=== PATIENT | male | born 1955 | race Caucasian/White ===

== ENCOUNTER 2016-05-22 11:44 | Emergency (ER) | payer OTHER ==
[~2016-05-22 11:44] MED LIST: ACET65TA; COUM1TAB; FOLI1TAB; KEFL500C; No Historical Meds; PERC5TAB8; PERC7.5T8; PRIL20CA; THERGRAN; THIA100T
[2016-05-22] MEDS ORDERED: ACETAMINOPHEN 325 MG TAB As Ordered ONE (13:07)
--- NOTE | 2016-05-22 13:23 | REP ---
Clinical: Posterior headaches . Comparison: None . Findings: The ventricles, sulci, and cisterns are normal in position and appearance. Bhardwaj-white differentiation is maintained. No acute intracranial hemorrhage, mass/mass effect, pathology or trauma/injury. No evidence for acute infarction. No extra-axial fluid collection. Calvarium is intact. Paranasal sinuses and mastoid air cells are clear. Impression: Normal noncontrast head CT. No evidence for acute intracranial pathology or trauma/injury. Signed by Jonathan Mazariegos MD 05/22/2016 01:14 P
--- NOTE | 2016-05-22 13:39 | REP ---
CT CERVICAL SPINE WITHOUT CONTRAST: 05/22/2016. Clinical history: Posterior headaches. There are no prior pertinent studies. The patient also had a head CT this date. Technique: axial soft-tissue and bone windows with sagittal and coronal bone window reconstructions provided. Trauma protocol utilized. Findings: Mastoids and occipital bone were grossly intact. The ring of C1 is preserved. There are degenerative changes at the articulation between the anterior arch of C1 and the dens. The dens and lateral masses of C1 have symmetric relationship on the coronal reconstructions and axial projections. There is loss of the normal cervical lordosis. There are anterior osteophytes at C5-6 and C6-7 with smaller posterior osteophytes. There is also bridging osteophyte at C4-5 which has discontinuity or fragmentation. There is no disc space narrowing at C4-5 and the levels above. No compression deformity or destructive lesion. Disc bulge and osteophytes at C5-6 and C6-7 cause central canal stenosis. Foramina only marginally adequate at C6-7, mildly stenotic at C5-6. C4-5 foramina and central canal adequate. The other levels intact. Posterior elements including the spinous processes, lamina, pedicles, facets, transverse processes and the transverse foramina were without fracture. There is facet arthropathy at multiple levels. Impression: 1. Cervical spondylosis at C5-6 and C6-7, less at C4-5 with no compression deformity or malalignment. 2. Some central canal and marginal foraminal stenosis is seen at C5-C6 and C6-7. No other levels with any significant spinal or foraminal stenosis. 3. No dens fracture or focal lesion and its relationship to C1 normal. Signed by Spike Bar MD 05/22/2016 01:56 P
[2016-05-22] MEDS ORDERED: KETOROLAC 30 MG/ML VIAL (J1885) As Ordered ONE (13:42)
--- NOTE | 2016-05-22 13:46 | REP ---
Clinical: Productive cough . Comparison: 09/16/2014 . Technique: PA and lateral. Findings: The mediastinum and cardiac silhouette are normal. The lung byrnes are clear and without acute consolidation, effusion, or pneumothorax. The skeletal structures are intact and normal. Impression: 1. No acute cardiopulmonary process. Signed by Jonathan Mazariegos MD 05/22/2016 01:38 P
--- NOTE | 2016-05-22 14:26 | EDDOCDS ---
Physician Documentation [facility] Name: Gordy Valle Age: 61 yrs Sex: Male : 1955 Arrival Date: 05/22/2016 Time: 11:44 Bed PD Private MD: Disposition: 05/22/16 14:10 Discharged to Home/Self Care. Impression: Spinal stenosis, cervical region, Headache. - Condition is Stable. - Discharge Instructions: General Headache Without Cause, Herniated Disk. - Prescriptions for [place] 5- 325 mg Oral Tablet - take 1 tablet by ORAL route every 6 hours As needed MDD: 4 tabs; MAY CAUSE DROWSINESS. 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 - Medication Reconciliation, Local Pharmacy Hours form. - Follow up: Emergency Department; When: As needed; Reason: Worsening of conditions. [facility]; When: Call to arrange an appointment; Reason: Recheck today's complaints, Continuance of care, To establish care. Follow up: Orthopaedics, [facility]; When: Call to arrange an appointment; Reason: Wound/Symptom Recheck, Further diagnostic work-up, Recheck today's complaints, Continuance of care, To establish care. Follow up: [facility]; When: Call to arrange an appointment; Reason: Wound/Symptom Recheck, Further diagnostic work-up, Recheck today's complaints, Continuance of care, To establish care. - Problem is new. - Symptoms are unchanged. - Notes: YOU HAVE SPINAL STENOSIS OF THE CERVICAL REGION, WHICH IS MOST LIKELY THE CAUSE OF YOUR HEADACHES. PLEASE TAKE THE PAIN MEDICATION DIRECTED, NEEDED FOR YOUR PAIN. YOU HAVE BEEN GIVEN INFORMATION TO FOLLOW UP WITH ORTHOPEDICS AND NEUROSURGERY. PLEASE CALL THESE OFFICES TO SCHEDULE FOLLOW UP FOR YOUR SYMPTOMS. YOUR CHEST XRAY DID NOT SHOW ANY ABNORMALITIES TODAY. Historical: - Allergies: no known allergies; - Home Meds: 1. Prozac Oral has is supposed to take and doesn't - PMHx: Depression; - PSHx: Hip Arthroplasty, Right; - Social history: Smoking status: Patient states former smoker of tobacco. No barriers to communication noted, The patient speaks fluent Tajik. - Family history: No immediate family members are acutely ill. - : The pt / caregiver states he / she is not on anticoagulants. Home medication list is obtained from the patient. - Exposure Risk Screening:: None identified. Vital Signs: 05/22 11:49 BP 157 / 84 RA Sitting (auto/reg); Pulse 73; Resp 18; Temp 98.4(O); Pulse Ox 98% on jrd R/A; Weight 109.77 kg / 242 lbs; Height 5 ft. 10 in. (177.80 cm); Pain 10/10; 14:25 BP 155 / 95; Pulse 82; Resp 16; Temp 98.7(O); Pulse Ox 97% on R/A; Pain 5/10; mlb1 11:49 Body Mass Index 34.72 (109.77 kg, 177.80 cm) jrd MDM: 12:51 Acetaminophen Tablet 975 mg PO once ordered. dt4 12:52 CT Head Without Contrast Ordered. EDMS 12:52 CT Spine,Cervical W/o Contrast Ordered. EDMS 12:52 Chest, 2 View (pa\E\lat) Ordered. EDMS 12:56 Financial registration complete. mm15 12:59 [facility] Payment Agreement was scanned into [employer] and attached to record. mm15 13:32 ketorolac 60 mg IM once ordered. dt4 Administered Medications: 13:10 Drug: Acetaminophen 975 mg [acetaminophen 325 mg tablet (3 tabs)] Route: PO; mb9 13:46 Drug: ketorolac 60 mg [ketorolac 30 mg/mL (1 mL) injection solution (2 mL)] Route: IM; mb9 Site: left gluteus; Signatures: Dispatcher [employer] EDMS Marvel Hackett RN RN mlb1 Rossana Alonzo mm15 Alexandra Madrigal, PA-C PA-C dt4 Jazmin Cadet RN RN ms18 Marvel Lao,RN RN mb9 The chart was reviewed and I authenticate all verbal orders and agree with the evaluation and treatment provided.Attachments: 12:59 [facility] Payment Agreement mm15 MTDD
--- NOTE | 2016-05-22 14:26 | EDDOCDS ---
Nurse's Notes [facility] Name: Gordy Valle Age: 61 yrs Sex: Male : 1955 Arrival Date: 05/22/2016 Time: 11:44 Bed PD Private MD: Diagnosis: Spinal stenosis, cervical region;Headache Presentation: 05/22 11:52 Presenting complaint: Patient states: that he hasn't been feeling well for the past 2 ms18 weeks, flu like symptoms. Pt reports that he has a headache that has been present for approx 5 months and believes it has gotten worse in the past 2 weeks. This patient has no additional risk factors. Adult Sepsis Screening: Patient has new or worsening altered mentation (1 point). Patient's respiratory rate is less than 22. Systolic blood pressure is greater than 100. Patient has a qSOFA score of 0- Negative Sepsis Screen. Suicide/Homicide risk assessment- the patient denies having any suicidal and/or homicidal ideations and does not present with any other emotional, behavioral or mental health complaints. Status: Patient is not a director of home health services or dependent. Transition of care: patient was not received from another setting of care. 11:52 Acuity: MARGOT Level 3 ms18 11:52 Method Of Arrival: Walkin/Carried/Asstd ms18 Triage Assessment: 11:56 Headache History: This patient does not have a history of previous headaches. General: ms18 Appears in no apparent distress, Behavior is anxious, cooperative, crying. Pain: Location: occipital area and base of the skull Pain currently is 9 out of 10 on a pain scale. Pain began 5 months ago. HIV screening NA for this visit Offered previously. Neurological: Level of Consciousness is awake, alert, obeys commands, Oriented to person, place, time, Moves all extremities. Gait is steady, Speech is normal, Facial symmetry appears normal. Respiratory: Airway is patent Respiratory effort is even, unlabored. Derm: Skin is pink, warm & dry. normal. Historical: - Allergies: no known allergies; - Home Meds: 1. Prozac Oral has is supposed to take and doesn't - PMHx: Depression; - PSHx: Hip Arthroplasty, Right; - Social history: Smoking status: Patient states former smoker of tobacco. No barriers to communication noted, The patient speaks fluent Grenadian. - Family history: No immediate family members are acutely ill. - : The pt / caregiver states he / she is not on anticoagulants. Home medication list is obtained from the patient. - Exposure Risk Screening:: None identified. Screenin:29 Screening information is obtained from the patient. Fall risk: No risks identified. mb9 Assistance ADL's: requires no assistance with activities of daily living. Abuse/DV Screen: The patient / caregiver reports he/she is: not in a situation that causes fear, pain or injury. Nutritional screening: No deficits noted. Advance Directives: There is no active DNR order. home support is adequate. Assessment: 13:10 General: Appears uncomfortable. Pain: Location: base of the skull and occipital area mb9 Pain currently is 5 out of 10 on a pain scale. Neurological: Level of Consciousness is awake, alert, Oriented to person, place, time, Processing Mgr are weak bilaterally Gait is steady, Speech is normal, Facial symmetry appears normal, Reports dizziness. Respiratory: Airway is patent Respiratory effort is even, unlabored. 14:24 General: Appears in no apparent distress, Behavior is appropriate for age, cooperative. mlb1 Pain: Location: base of the skull and occipital area Pain currently is 5 out of 10 on a pain scale. Neurological: No deficits noted. Respiratory: No deficits noted. Vital Signs: 11:49 BP 157 / 84 RA Sitting (auto/reg); Pulse 73; Resp 18; Temp 98.4(O); Pulse Ox 98% on jrd R/A; Weight 109.77 kg; Height 5 ft. 10 in. (177.80 cm); Pain 10/10; 14:25 BP 155 / 95; Pulse 82; Resp 16; Temp 98.7(O); Pulse Ox 97% on R/A; Pain 5/10; mlb1 11:49 Body Mass Index 34.72 (109.77 kg, 177.80 cm) [facility] Vitals: 11:56 Log In Time: May 22, 2016 at 11:44. ms18 ED Course: 11:45 Patient visited by Dylan Hutchinson PCA. jrd 11:45 Patient moved to Waiting jrd 11:51 Patient visited by Dylan Hutchinson PCA. jrd 11:51 Patient moved to Pre RCE jrd 11:54 Triage Initiated ms18 12:17 Patient moved to Triage 2 mlb1 12:32 [facility]al [facility] dt4 12:32 David Santizo MD is Attending Physician. dt4 12:33 Patient visited by Alexandra Madrigal PA-C. dt4 12:48 Patient moved to PD mb9 12:59 [facility] Payment Agreement was scanned into [employer] and attached to record. mm15 13:29 The patient / caregiver is instructed regarding the plan of care and ED course. mb9 13:34 CT Head Without Contrast Returned. EDMS 13:44 Patient visited by Alexandra Madrigal PA-C. dt4 14:08 [facility] is Referral Physician. [facility]4 14[facility]. dt4 14:09 [facility] is Referral Physician. dt4 14:18 CT Spine,Cervical W/o Contrast Returned. EDMS 14:18 Chest, 2 View (pa\E\lat) Returned. EDMS 14:25 No IV's were initiated during this patient's visit. No procedures done that require mlb1 assistance. 14:26 Patient visited by Marvel Hackett RN. mlb1 Administered Medications: 13:10 Drug: Acetaminophen 975 mg [acetaminophen 325 mg tablet (3 tabs)] Route: PO; mb9 13:46 Drug: ketorolac 60 mg [ketorolac 30 mg/mL (1 mL) injection solution (2 mL)] Route: IM; mb9 Site: left gluteus; Order Results: Radiology Order: CT Head Without Contrast Test: CT Head Without Contrast REASON FOR EXAMINATION: POSTERIOR VELEZ X'S 5 MONTHS; Clinical: Posterior headaches .; ; Comparison: None .; ; Findings:; The ventricles, sulci, and cisterns are normal in position and appearance.; Bhardwaj-white differentiation is maintained. No acute intracranial hemorrhage,; mass/mass effect, pathology or trauma/injury. No evidence for acute infarction.; No extra-axial fluid collection. Calvarium is intact. Paranasal sinuses and; mastoid air cells are clear.; ; Impression:; Normal noncontrast head CT.; No evidence for acute intracranial pathology or trauma/injury.; ; ; Signed by; Jonathan Mazariegos MD 05/22/2016 01:14 P; Radiology Order: CT Spine,Cervical W/o Contrast Test: CT Spine,Cervical W/o Contrast REASON FOR EXAMINATION: POSTERIOR VELEZ; CT CERVICAL SPINE WITHOUT CONTRAST: 05/22/2016.; ; Clinical history: Posterior headaches.; ; There are no prior pertinent studies. The patient also had a head CT this date.; ; Technique: axial soft-tissue and bone windows with sagittal and coronal bone; window reconstructions provided. Trauma protocol utilized.; ; Findings: Mastoids and occipital bone were grossly intact. The ring of C1 is; preserved. There are degenerative changes at the articulation between the; anterior arch of C1 and the dens. The dens and lateral masses of C1 have; symmetric relationship on the coronal reconstructions and axial projections.; There is loss of the normal cervical lordosis. There are anterior osteophytes at; C5-6 and C6-7 with smaller posterior osteophytes. There is also bridging; osteophyte at C4-5 which has discontinuity or fragmentation. There is no disc; space narrowing at C4-5 and the levels above. No compression deformity or; destructive lesion. Disc bulge and osteophytes at C5-6 and C6-7 cause central; canal stenosis. Foramina only marginally adequate at C6-7, mildly stenotic at; C5-6. C4-5 foramina and central canal adequate. The other levels intact.; Posterior elements including the spinous processes, lamina, pedicles, facets,; transverse processes and the transverse foramina were without fracture. There is; facet arthropathy at multiple levels.; ; Impression:; ; 1. Cervical spondylosis at C5-6 and C6-7, less at C4-5 with no compression; deformity or malalignment.; ; 2. Some central canal and marginal foraminal stenosis is seen at C5-C6 and C6-7.; No other levels with any significant spinal or foraminal stenosis.; ; 3. No dens fracture or focal lesion and its relationship to C1 normal.; ; ; ; ; Signed by; Spike Bar MD 05/22/2016 01:56 P; Radiology Order: Chest, 2 View (pa\E\lat) Test: Chest, 2 View (pa\E\lat) REASON FOR EXAMINATION: PRODUCTIVE COUGH; Clinical: Productive cough .; ; Comparison: 09/16/2014 .; ; Technique: PA and lateral.; ; Findings:; The mediastinum and cardiac silhouette are normal. The lung ybrnes are clear and; without acute consolidation, effusion, or pneumothorax. The skeletal structures; are intact and normal.; ; Impression:; 1. No acute cardiopulmonary process.; ; ; Signed by; Jonathan Mazariegos MD 05/22/2016 01:38 P; Outcome: 14:10 Discharge ordered by Provider. dt4 14:25 Discharge Assessment: Patient awake, alert and oriented x 3. No cognitive and/or mlb1 functional deficits noted. Patient verbalized understanding of disposition instructions. patient administered narcotics - no. The following High Risk Discharge criteria are identified: None. Discharged to home ambulatory. Condition: good. Discharge instructions given to patient, Instructed on discharge instructions, follow up and referral plans. medication usage, no driving heavy equipment, Demonstrated understanding of instructions, medications, Pt was receptive of discharge instructions/ teaching. Prescriptions given X 1. CT Study completed. Property sent home with patient. 14:26 Patient left the ED. mlb1 Signatures: Dispatcher [employer] EDMS Marvel Hackett RN RN mlb1 Rossana Alonzo mm15 Alexandra Madrigal, PA-C PA-C dt4 Jazmin Cadet,JONNA RN ms18 Dylan Hutchinson, THREAD GRINDER TOOL THREAD GRINDER TOOL Marvel Norris,RN RN mb9 [facility]
--- NOTE | 2016-05-24 15:28 | EDDOCDS ---
Physician Documentation [facility] Name: Gordy Valle Age: 61 yrs Sex: Male : 1955 Arrival Date: 05/22/2016 Time: 11:44 Bed PD Private MD: Disposition: 05/22/16 14:10 Discharged to Home/Self Care. Impression: Spinal stenosis, cervical region, Headache. - Condition is Stable. - Discharge Instructions: General Headache Without Cause, Herniated Disk. - Prescriptions for [place] 5- 325 mg Oral Tablet - take 1 tablet by ORAL route every 6 hours As needed MDD: 4 tabs; MAY CAUSE DROWSINESS. 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 - Medication Reconciliation, Local Pharmacy Hours form. - Follow up: Emergency Department; When: As needed; Reason: Worsening of conditions. Follow up: [facility]; When: Call to arrange an appointment; Reason: Recheck today's complaints, Continuance of care, To establish care. Follow up: Orthopaedics, [facility]; When: Call to arrange an appointment; Reason: Wound/Symptom Recheck, Further diagnostic work-up, Recheck today's complaints, Continuance of care, To establish care. Follow up: [facility]; When: Call to arrange an appointment; Reason: Wound/Symptom Recheck, Further diagnostic work-up, Recheck today's complaints, Continuance of care, To establish care. - Problem is new. - Symptoms are unchanged. - Notes: YOU HAVE SPINAL STENOSIS OF THE CERVICAL REGION, WHICH IS MOST LIKELY THE CAUSE OF YOUR HEADACHES. PLEASE TAKE THE PAIN MEDICATION DIRECTED, NEEDED FOR YOUR PAIN. YOU HAVE BEEN GIVEN INFORMATION TO FOLLOW UP WITH ORTHOPEDICS AND NEUROSURGERY. PLEASE CALL THESE OFFICES TO SCHEDULE FOLLOW UP FOR YOUR SYMPTOMS. YOUR CHEST XRAY DID NOT SHOW ANY ABNORMALITIES TODAY. Historical: - Allergies: no known allergies; - Home Meds: 1. Prozac Oral has is supposed to take and doesn't - PMHx: Depression; - PSHx: Hip Arthroplasty, Right; - Social history: Smoking status: Patient states former smoker of tobacco. No barriers to communication noted, The patient speaks fluent Maori. - Family history: No immediate family members are acutely ill. - : The pt / caregiver states he / she is not on anticoagulants. Home medication list is obtained from the patient. - Exposure Risk Screening:: None identified. Vital Signs: 05/22 11:49 BP 157 / 84 RA Sitting (auto/reg); Pulse 73; Resp 18; Temp 98.4(O); Pulse Ox 98% on jrd R/A; Weight 109.77 kg / 242 lbs; Height 5 ft. 10 in. (177.80 cm); Pain 10/10; 14:25 BP 155 / 95; Pulse 82; Resp 16; Temp 98.7(O); Pulse Ox 97% on R/A; Pain 5/10; mlb1 11:49 Body Mass Index 34.72 (109.77 kg, 177.80 cm) jrd MDM: 12:51 Acetaminophen Tablet 975 mg PO once ordered. dt4 12:52 CT Head Without Contrast Ordered. EDMS 12:52 CT Spine,Cervical W/o Contrast Ordered. EDMS 12:52 Chest, 2 View (pa\E\lat) Ordered. EDMS 12:56 Financial registration complete. mm15 12:59 [facility] Payment Agreement was scanned into [employer] and attached to record. mm15 13:32 ketorolac 60 mg IM once ordered. dt4 15:46 T-Sheet-- Draft Copy was scanned into [employer] and attached to record. gb 15:46 Radiology Report was scanned into [employer] and attached to record. gb Administered Medications: 13:10 Drug: Acetaminophen 975 mg [acetaminophen 325 mg tablet (3 tabs)] Route: PO; mb9 13:46 Drug: ketorolac 60 mg [ketorolac 30 mg/mL (1 mL) injection solution (2 mL)] Route: IM; mb9 Site: left gluteus; Signatures: Dispatcher [employer] EDMS Renee Valdivia, Reg Reg gb Marvel Hackett, RN RN mlb1 Rossana Alonzo mm15 Alexandra Madrigal PA-C PALuis A dt4 Jazmin Cadet RN RN ms18 Marvel LaoRN RN mb9 The chart was reviewed and I authenticate all verbal orders and agree with the evaluation and treatment provided.Attachments: 12:59 [facility] Payment Agreement mm15 15:46 T-Sheet-- Draft Copy gb Chart Complete MTDD
--- NOTE | 2016-05-24 15:28 | EDDOCDS ---
Nurse's Notes [facility] Name: Gordy Valle Age: 61 yrs Sex: Male : 1955 Arrival Date: 05/22/2016 Time: 11:44 Bed PD Private MD: Diagnosis: Spinal stenosis, cervical region;Headache Presentation: 05/22 11:52 Presenting complaint: Patient states: that he hasn't been feeling well for the past 2 ms18 weeks, flu like symptoms. Pt reports that he has a headache that has been present for approx 5 months and believes it has gotten worse in the past 2 weeks. This patient has no additional risk factors. Adult Sepsis Screening: Patient has new or worsening altered mentation (1 point). Patient's respiratory rate is less than 22. Systolic blood pressure is greater than 100. Patient has a qSOFA score of 0- Negative Sepsis Screen. Suicide/Homicide risk assessment- the patient denies having any suicidal and/or homicidal ideations and does not present with any other emotional, behavioral or mental health complaints. 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 Transition of care: patient was not received from another setting of care. 11:52 Acuity: MARGOT Level 3 ms18 11:52 Method Of Arrival: Walkin/Carried/Asstd ms18 Triage Assessment: 11:56 Headache History: This patient does not have a history of previous headaches. General: ms18 Appears in no apparent distress, Behavior is anxious, cooperative, crying. Pain: Location: occipital area and base of the skull Pain currently is 9 out of 10 on a pain scale. Pain began 5 months ago. HIV screening NA for this visit Offered previously. Neurological: Level of Consciousness is awake, alert, obeys commands, Oriented to person, place, time, Moves all extremities. Gait is steady, Speech is normal, Facial symmetry appears normal. Respiratory: Airway is patent Respiratory effort is even, unlabored. Derm: Skin is pink, warm & dry. normal. Historical: - Allergies: no known allergies; - Home Meds: 1. Prozac Oral has is supposed to take and doesn't - PMHx: Depression; - PSHx: Hip Arthroplasty, Right; - Social history: Smoking status: Patient states former smoker of tobacco. No barriers to communication noted, The patient speaks fluent Zambian. - Family history: No immediate family members are acutely ill. - : The pt / caregiver states he / she is not on anticoagulants. Home medication list is obtained from the patient. - Exposure Risk Screening:: None identified. Screenin:29 Screening information is obtained from the patient. Fall risk: No risks identified. mb9 Assistance ADL's: requires no assistance with activities of daily living. Abuse/DV Screen: The patient / caregiver reports he/she is: not in a situation that causes fear, pain or injury. Nutritional screening: No deficits noted. Advance Directives: There is no active DNR order. home support is adequate. Assessment: 13:10 General: Appears uncomfortable. Pain: Location: base of the skull and occipital area mb9 Pain currently is 5 out of 10 on a pain scale. Neurological: Level of Consciousness is awake, alert, Oriented to person, place, time, Commercial Litigation Attorney are weak bilaterally Gait is steady, Speech is normal, Facial symmetry appears normal, Reports dizziness. Respiratory: Airway is patent Respiratory effort is even, unlabored. 14:24 General: Appears in no apparent distress, Behavior is appropriate for age, cooperative. mlb1 Pain: Location: base of the skull and occipital area Pain currently is 5 out of 10 on a pain scale. Neurological: No deficits noted. Respiratory: No deficits noted. Vital Signs: 11:49 BP 157 / 84 RA Sitting (auto/reg); Pulse 73; Resp 18; Temp 98.4(O); Pulse Ox 98% on jrd R/A; Weight 109.77 kg; Height 5 ft. 10 in. (177.80 cm); Pain 10/10; 14:25 BP 155 / 95; Pulse 82; Resp 16; Temp 98.7(O); Pulse Ox 97% on R/A; Pain 5/10; mlb1 11:49 Body Mass Index 34.72 (109.77 kg, 177.80 cm) [facility] Vitals: 11:56 Log In Time: May 22, 2016 at 11:44. ms18 ED Course: 11:45 Patient visited by Dylan Hutchinson PCA. jrd 11:45 Patient moved to Waiting jrd 11:51 Patient visited by Dylan Hutchinson PCA. jrd 11:51 Patient moved to Pre RCE jrd 11:54 Triage Initiated ms18 12:17 Patient moved to Triage 2 mlb1 12:32 [facility] dt4 12:32 David Santizo MD is Attending Physician. dt4 12:33 Patient visited by Alexandra Madrigal PA-C. dt4 12:48 Patient moved to PD mb9 12:59 [facility] Payment Agreement was scanned into [employer] and attached to record. mm15 13:29 The patient / caregiver is instructed regarding the plan of care and ED course. mb9 13:34 CT Head Without Contrast Returned. EDMS 13:44 Patient visited by Alexandra Madrigal PA-C. dt4 14:08 [facility], Education [facility] is Referral Physician. dt4 14:09 [facility]. dt4 14:09 Jessica Lebron is Referral Physician. dt4 14:18 CT Spine,Cervical W/o Contrast Returned. EDMS 14:18 Chest, 2 View (pa\E\lat) Returned. EDMS 14:25 No IV's were initiated during this patient's visit. No procedures done that require mlb1 assistance. 14:26 Patient visited by Marvel Hackett RN. mlb1 15:46 T-Sheet-- Draft Copy was scanned into [employer] and attached to record. gb 15:46 Radiology Report was scanned into [employer] and attached to record. gb Administered Medications: 13:10 Drug: Acetaminophen 975 mg [acetaminophen 325 mg tablet (3 tabs)] Route: PO; mb9 13:46 Drug: ketorolac 60 mg [ketorolac 30 mg/mL (1 mL) injection solution (2 mL)] Route: IM; mb9 Site: left gluteus; Order Results: Radiology Order: CT Head Without Contrast Test: CT Head Without Contrast REASON FOR EXAMINATION: POSTERIOR VELEZ X'S 5 MONTHS; Clinical: Posterior headaches .; ; Comparison: None .; ; Findings:; The ventricles, sulci, and cisterns are normal in position and appearance.; Bhardwaj-white differentiation is maintained. No acute intracranial hemorrhage,; mass/mass effect, pathology or trauma/injury. No evidence for acute infarction.; No extra-axial fluid collection. Calvarium is intact. Paranasal sinuses and; mastoid air cells are clear.; ; Impression:; Normal noncontrast head CT.; No evidence for acute intracranial pathology or trauma/injury.; ; ; Signed by; Jonathan Mazariegos MD 05/22/2016 01:14 P; Radiology Order: CT Spine,Cervical W/o Contrast Test: CT Spine,Cervical W/o Contrast REASON FOR EXAMINATION: POSTERIOR VELEZ; CT CERVICAL SPINE WITHOUT CONTRAST: 05/22/2016.; ; Clinical history: Posterior headaches.; ; There are no prior pertinent studies. The patient also had a head CT this date.; ; Technique: axial soft-tissue and bone windows with sagittal and coronal bone; window reconstructions provided. Trauma protocol utilized.; ; Findings: Mastoids and occipital bone were grossly intact. The ring of C1 is; preserved. There are degenerative changes at the articulation between the; anterior arch of C1 and the dens. The dens and lateral masses of C1 have; symmetric relationship on the coronal reconstructions and axial projections.; There is loss of the normal cervical lordosis. There are anterior osteophytes at; C5-6 and C6-7 with smaller posterior osteophytes. There is also bridging; osteophyte at C4-5 which has discontinuity or fragmentation. There is no disc; space narrowing at C4-5 and the levels above. No compression deformity or; destructive lesion. Disc bulge and osteophytes at C5-6 and C6-7 cause central; canal stenosis. Foramina only marginally adequate at C6-7, mildly stenotic at; C5-6. C4-5 foramina and central canal adequate. The other levels intact.; Posterior elements including the spinous processes, lamina, pedicles, facets,; transverse processes and the transverse foramina were without fracture. There is; facet arthropathy at multiple levels.; ; Impression:; ; 1. Cervical spondylosis at C5-6 and C6-7, less at C4-5 with no compression; deformity or malalignment.; ; 2. Some central canal and marginal foraminal stenosis is seen at C5-C6 and C6-7.; No other levels with any significant spinal or foraminal stenosis.; ; 3. No dens fracture or focal lesion and its relationship to C1 normal.; ; ; ; ; Signed by; Spike Bar MD 05/22/2016 01:56 P; Radiology Order: Chest, 2 View (pa\E\lat) Test: Chest, 2 View (pa\E\lat) REASON FOR EXAMINATION: PRODUCTIVE COUGH; Clinical: Productive cough .; ; Comparison: 09/16/2014 .; ; Technique: PA and lateral.; ; Findings:; The mediastinum and cardiac silhouette are normal. The lung byrnes are clear and; without acute consolidation, effusion, or pneumothorax. The skeletal structures; are intact and normal.; ; Impression:; 1. No acute cardiopulmonary process.; ; ; Signed by; Jonathan Mazariegos MD 05/22/2016 01:38 P; Outcome: 14:10 Discharge ordered by Provider. dt4 14:25 Discharge Assessment: Patient awake, alert and oriented x 3. No cognitive and/or mlb1 functional deficits noted. Patient verbalized understanding of disposition instructions. patient administered narcotics - no. The following High Risk Discharge criteria are identified: None. Discharged to home ambulatory. Condition: good. Discharge instructions given to patient, Instructed on discharge instructions, follow up and referral plans. medication usage, no driving heavy equipment, Demonstrated understanding of instructions, medications, Pt was receptive of discharge instructions/ teaching. Prescriptions given X 1. CT Study completed. Property sent home with patient. 14:26 Patient left the ED. mlb1 Signatures: Dispatcher [employer] EDMS Renee Valdivia, Reg Reg gb Marvel Hackett RN RN mlb1 Rossana Alonzo mm15 Alexandra Madrigal, PA-C PA-C dt4 Jazmin Cadet,RN RN ms18 Dylan Hutchinson, B[employer] SALES MERCHANDISER Marvel Norris,RN RN mb9 Chart Complete MTDD
--- NOTE | 2016-05-24 15:28 | EDDOCDS ---
Physician Documentation [facility] Name: Gordy Valle Age: 61 yrs Sex: Male : 1955 Arrival Date: 05/22/2016 Time: 11:44 Bed PD Private MD: Disposition: 05/22/16 14:10 Discharged to Home/Self Care. Impression: Spinal stenosis, cervical region, Headache. - Condition is Stable. - Discharge Instructions: General Headache Without Cause, Herniated Disk. - Prescriptions for [place] 5- 325 mg Oral Tablet - take 1 tablet by ORAL route every 6 hours As needed MDD: 4 tabs; MAY CAUSE DROWSINESS. 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 - Medication Reconciliation, Local Pharmacy Hours form. - Follow up: Emergency Department; When: As needed; Reason: Worsening of conditions. Follow up: [facility]; When: Call to arrange an appointment; Reason: Recheck today's complaints, Continuance of care, To establish care. Follow up: Orthopaedics, [facility]; When: Call to arrange an appointment; Reason: Wound/Symptom Recheck, Further diagnostic work-up, Recheck today's complaints, Continuance of care, To establish care. Follow up: Jessica Lebron; When: Call to arrange an appointment; Reason: Wound/Symptom Recheck, Further diagnostic work-up, Recheck today's complaints, Continuance of care, To establish care. - Problem is new. - Symptoms are unchanged. - Notes: YOU HAVE SPINAL STENOSIS OF THE CERVICAL REGION, WHICH IS MOST LIKELY THE CAUSE OF YOUR HEADACHES. PLEASE TAKE THE PAIN MEDICATION DIRECTED, NEEDED FOR YOUR PAIN. YOU HAVE BEEN GIVEN INFORMATION TO FOLLOW UP WITH ORTHOPEDICS AND NEUROSURGERY. PLEASE CALL THESE OFFICES TO SCHEDULE FOLLOW UP FOR YOUR SYMPTOMS. YOUR CHEST XRAY DID NOT SHOW ANY ABNORMALITIES TODAY. Historical: - Allergies: no known allergies; - Home Meds: 1. Prozac Oral has is supposed to take and doesn't - PMHx: Depression; - PSHx: Hip Arthroplasty, Right; - Social history: Smoking status: Patient states former smoker of tobacco. No barriers to communication noted, The patient speaks fluent Icelandic. - Family history: No immediate family members are acutely ill. - : The pt / caregiver states he / she is not on anticoagulants. Home medication list is obtained from the patient. - Exposure Risk Screening:: None identified. Vital Signs: 05/22 11:49 BP 157 / 84 RA Sitting (auto/reg); Pulse 73; Resp 18; Temp 98.4(O); Pulse Ox 98% on jrd R/A; Weight 109.77 kg / 242 lbs; Height 5 ft. 10 in. (177.80 cm); Pain 10/10; 14:25 BP 155 / 95; Pulse 82; Resp 16; Temp 98.7(O); Pulse Ox 97% on R/A; Pain 5/10; mlb1 11:49 Body Mass Index 34.72 (109.77 kg, 177.80 cm) jrd MDM: 12:51 Acetaminophen Tablet 975 mg PO once ordered. dt4 12:52 CT Head Without Contrast Ordered. EDMS 12:52 CT Spine,Cervical W/o Contrast Ordered. EDMS 12:52 Chest, 2 View (pa\E\lat) Ordered. EDMS 12:56 Financial registration complete. mm15 12:59 [facility] Payment Agreement was scanned into [employer] and attached to record. mm15 13:32 ketorolac 60 mg IM once ordered. dt4 15:46 T-Sheet-- Draft Copy was scanned into [employer] and attached to record. gb 15:46 Radiology Report was scanned into [employer] and attached to record. gb Administered Medications: 13:10 Drug: Acetaminophen 975 mg [acetaminophen 325 mg tablet (3 tabs)] Route: PO; mb9 13:46 Drug: ketorolac 60 mg [ketorolac 30 mg/mL (1 mL) injection solution (2 mL)] Route: IM; mb9 Site: left gluteus; Signatures: Dispatcher [employer] EDMS Renee Valdivia, Reg Reg gb Marvel Hackett, RN RN mlb1 Rossana Alonzo mm15 Alexandra Madrigal PA-C PALuis A dt4 Jazmin Cadet RN RN ms18 Marvel LaoRN RN mb9 The chart was reviewed and I authenticate all verbal orders and agree with the evaluation and treatment provided.Attachments: 12:59 [facility] Payment Agreement mm15 15:46 T-Sheet-- Draft Copy gb Chart Complete MTDD
== END 2016-05-22 14:26 | disposition home or self-care (01) ==
LOC: M ED 11:44
DX: M48.02 Spinal stenosis, cervical region (principal); R51 Headache; F32.9 Major depressive disorder, single episode, unspecified; Z96.641 Presence of right artificial hip joint; Z87.891 Personal history of nicotine dependence
CPT/HCPCS: 70450; 71020; 72125; 96372; 99284; J1885

== ENCOUNTER → 2016-05-24 | Outpatient (CLI) | payer OTHER ==
[2016-05-24 10:53] LABS: BASO % 0.3 % (0.0-1.0); EOS # 0.1 K/mm3 (0.0-0.50); EOS % 1.9 % (0.0-3.0); LARGE UNSTAINED CELL # 0.2 K/mm3 (0.0-0.4); LARGE UNSTAINED CELL % 2.9 % (0.0-4.0); LYMPH % 37.7 % (24.0-44.0); MEAN CORPUSCULAR HEMOGLOBIN 30.6 pg (27.0-33.0); MEAN CORPUSCULAR VOLUME 89.9 fl (80.0-96.0); MONO # 0.5 K/mm3 (0.0-0.8); NEUTROPHILS # 2.5 K/mm3 (1.8-7.7); NEUTROPHILS % 47.3 % (36.0-66.0); PLATELET COUNT, AUTOMATED 189 k/mm3 (150-450); RED CELL DISTRIBUTION WIDTH 12.7 % (11.5-14.5); WHITE BLOOD COUNT 5.3 K/mm3 (4.0-10.0)
[2016-05-24 11:10] LABS: ALBUMIN 3.7 GM/DL (3.2-5.2); ALBUMIN/GLOBULIN RATIO 1.32 (1.00-1.93); ALKALINE PHOSPHATASE 64 U/L (45-117); ALT/SGPT 28 U/L (12-78); ANION GAP 8 MEQ/L (8-16); AST/SGOT 17 U/L (15-37); BILIRUBIN,TOTAL 0.4 MG/DL (0.2-1.0); BLOOD UREA NITROGEN 13 MG/DL (7-18); CALCIUM LEVEL 8.6 MG/DL (8.5-10.1); CARBON DIOXIDE LEVEL 29 MEQ/L (21-32); CHLORIDE LEVEL 107 MEQ/L (98-107); CHOLESTEROL LEVEL 153 MG/DL (<200); CREATININE FOR GFR 0.86 MG/DL (0.70-1.30); GLOMERULAR FILTRATION RATE > 60.0 (>56); GLUCOSE, FASTING 94 MG/DL (70-105); POTASSIUM SERUM 4.6 MEQ/L (3.5-5.1); SODIUM LEVEL 144 MEQ/L (136-145); TOTAL PROTEIN 6.5 GM/DL (6.4-8.2); TRIGLYCERIDES LEVEL 101 MG/DL (<150)
== END ==
LOC: M LAB 10:11
PROVIDERS: ATTEND Hospitalist
DX: Z68.34 Body mass index [BMI] 34.0-34.9, adult (principal)

== ENCOUNTER → 2016-07-01 | Outpatient (CLI) | payer OTHER ==
--- NOTE | 2016-07-01 11:23 | REP ---
CERVICAL SPINE, SEVEN VIEWS: HISTORY: Spondylosis. There is no acute fracture. There are old compression fractures of the C5 and 6 vertebral bodies with minimal height loss. The C5-6 and C6-7 intervertebral discs are decreased in height consistent with disc degeneration. Osteophytes are present on C4-7. Calcification is present anterior to the C4-5 and C5-6 intervertebral discs. This represents calcification of the anterior longitudinal ligament. There is narrowing of the C4-6 neural foramina secondary to uncinate process hypertrophy. There are 2 mm of anterior subluxation of C3 on 4. This is unchanged with flexion and reduces with extension. IMPRESSION: Degenerative change as described above. Signed by Jose Villa MD 07/01/2016 11:34 A
--- NOTE | 2016-07-01 11:31 | REP ---
LUMBAR SPINE, SEVEN VIEWS: HISTORY: Spondylosis. COMPARISON: 07/09/2004. There is no acute fracture. The L2-3 through L5-S1 intervertebral discs are decreased in height consistent with disc degeneration. Osteophytes are present on L1-5. There is narrowing of the L4-5 and L5-S1 facet joints with associated sclerosis. There are 4 mm of grade 1 spondylolisthesis of L5 on S1. This is unchanged with flexion and extension. IMPRESSION: Degenerative change as described above. Signed by Jose Villa MD 07/01/2016 11:34 A
== END ==
LOC: M RAD 10:38
PROVIDERS: ATTEND Neurological Surgery
DX: M47.896 Other spondylosis, lumbar region (principal); M47.892 Other spondylosis, cervical region

== ENCOUNTER 2016-11-02 18:28 | Emergency (ER) | payer OTHER ==
[~2016-11-02] VITALS: Ht 180.3 cm; Wt 118.2 kg
[2016-11-02] MEDS ORDERED: metroNIDAZOLE (FLAGYL) 250 MG TAB As Ordered ONE (19:40)
--- NOTE | 2016-11-02 20:10 | REPUSA ---
CLINICAL HISTORY: Abdominal pain. TECHNIQUE: Multiple axial, sagittal and coronal CT images were obtained through the abdomen and pelvi s without administration of oral or IV contrast material. COMMENTS: The liver is of uniform attenuation without mass or defect. There is no intra or extrahepatic biliary ductal dilatation. The spleen is normal. The gallbladder is within normal limits. The pancreas is of normal contour and attenuation characteristics. There is no evidence of adrenal mass. The kidneys are normal in size, shape and configuration. No renal or ureteral calculi are identified. There is no hydroureter or hydronephrosis. 6 cm cyst is present in the midpole of left kidney anter iorly. There is no evidence for appendicitis. There is marked wall thickening wall noted involving sigmoid c olon with sigmoid diverticulosis with severe adjacent inflammatory stranding compatible with acute di verticulitis. There is no free air or abscess. There are multiple adjacent lymph nodes noted me asuring up to 8 mm. Follow-up with colonoscopy is recommended after acute phase of inflammation. No evidence for small or large bowel obstruction. There is no evidence of intrinsic or extrinsic bladder mass. Prostate is mildly enlarged containing calcifications. Status post right total knee replacement. Images of the lung bases show no evidence of pleural or parenchymal mass. There are no pleural effusi ons. The bony structures are free of lytic or blastic lesions. Multilevel degenerative changes are seen in volving the thoracolumbar spine. Grade 1 anterolisthesis of L5 over S1 is noted due to bilateral spo ndylolysis. Scattered calcifications are seen involving the aorta and major branches compatible with atherosclero sis. IMPRESSION: Marked wall thickening wall noted involving sigmoid colon with sigmoid diverticulosis with severe adj acent inflammatory stranding compatible with acute diverticulitis. There is no free air or abscess . There are multiple adjacent lymph nodes noted measuring up to 8 mm. Follow-up with colonoscopy is recommended after acute phase of inflammation. Thank you for your kind referral of this patient.
[2016-11-02] MEDS ORDERED: FLAG500T PO (20:34)
[2016-11-02] MEDS ORDERED: HYDR-3713 PO (20:34)
[2016-11-02] MEDS ORDERED: CIPR-249 PO (20:34)
[2016-11-02 20:45] VITALS: BP 151/72
[2016-11-02] MEDS ORDERED: NORCO 5/325MG TABLET (BULK FOR ED) PO ONE (20:45)
[2016-11-02] MEDS ORDERED: CIPROFLOXACIN 500 MG TAB PO ONE (20:45)
[2016-11-02] MEDS ORDERED: metroNIDAZOLE (FLAGYL) 500 MG TAB PO ONE (20:45)
--- NOTE | 2016-11-03 06:51 | ED PDOC ---
Post-Departure Follow-Up [facility] faxed formal report of ct abd/p for fu. Dr Hanks.Luis Angel Hurley MD Nov 03, 2016 06:51
== END 2016-11-02 20:46 | disposition home or self-care (01) ==
LOC: M ED 18:28
DX: K57.30 Diverticulosis of large intestine without perforation or abscess without bleeding (principal); E66.9 Obesity, unspecified; Z87.891 Personal history of nicotine dependence

== ENCOUNTER → 2017-05-23 | Outpatient (CLI) | payer OTHER ==
[2017-05-23 10:08] LABS: ESTIMATED AVERAGE GLUCOSE 120 MG/DL (60-110); HEMOGLOBIN A1c 5.8 %
[2017-05-23 10:12] LABS: ALBUMIN 3.8 GM/DL (3.2-5.2); ALBUMIN/GLOBULIN RATIO 1.23 (1.00-1.93); ALKALINE PHOSPHATASE 69 U/L (45-117); ALT/SGPT 21 U/L (12-78); ANION GAP 7 MEQ/L (8-16); AST/SGOT 14 U/L (7-37); BILIRUBIN,TOTAL 0.5 MG/DL (0.2-1.0); BLOOD UREA NITROGEN 13 MG/DL (7-18); CALCIUM LEVEL 8.4 MG/DL (8.8-10.2); CARBON DIOXIDE LEVEL 29 MEQ/L (21-32); CHLORIDE LEVEL 105 MEQ/L (98-107); CHOLESTEROL LEVEL 181 MG/DL (<200); CHOLESTEROL RISK RATIO 3.934 (<5); CREATININE FOR GFR 1.01 MG/DL (0.70-1.30); GLOMERULAR FILTRATION RATE > 60.0 (>49); GLUCOSE, FASTING 97 MG/DL (70-100); HDL CHOLESTEROL 46 MG/DL (>40); LDL CHOLESTEROL 113.4 MG/DL (<100); NON-HDL-C 135 MG/DL; POTASSIUM SERUM 4.3 MEQ/L (3.5-5.1); SODIUM LEVEL 141 MEQ/L (136-145); TOTAL PROTEIN 6.9 GM/DL (6.4-8.2); TRIGLYCERIDES LEVEL 108 MG/DL (<150)
[2017-05-23 11:24] LABS: HEPATITIS C VIRUS ABY INDEX < 0.0 INDEX (<0.8)
== END ==
LOC: M LAB 09:03
DX: E66.9 Obesity, unspecified (principal); Z11.59 Encounter for screening for other viral diseases
CPT/HCPCS: 80053

== ENCOUNTER → 2018-02-12 | Outpatient (REF) | payer OTHER | LOC: M SFHCPLAZ 15:32 | DX: R73.03 Prediabetes (principal); E83.51 Hypocalcemia; E66.9 Obesity, unspecified ==

== ENCOUNTER → 2018-02-23 | Outpatient (CLI) | payer OTHER | LOC: M SLEEP HO 14:41 | DX: G47.33 Obstructive sleep apnea (adult) (pediatric) (principal) | CPT/HCPCS: G0399 ==

== ENCOUNTER → 2019-06-17 | Outpatient (CLI) | payer OTHER ==
[~2019-06-17] MED LIST changes: +CIPR-249 PO; +FLAG500T PO; +HYDR-3713 PO
[2019-06-17 08:56] LABS: CHOLESTEROL RISK RATIO 3.72 (<5)
[2019-06-17 09:21] LABS: HEMOGLOBIN A1c 6.1 %
== END ==
LOC: M LAB 07:37
PROVIDERS: ATTEND Internal Medicine
DX: R73.03 Prediabetes (principal)

== ENCOUNTER 2019-10-13 10:42 | Emergency (ER) | payer OTHER ==
[2019-10-13] MEDS ORDERED: ONDANSETRON 4MG/2ML VIAL IV ONE (11:00)
[2019-10-13] MEDS ORDERED: KETOROLAC 30 MG/ML 1ML VIAL IV ONE (11:00)
[2019-10-13] MEDS ORDERED: NS 1,000 ML IV ONE (11:00)
[2019-10-13 11:37] LABS: BASO % 0.2 % (0.0-1.0); EOS % 0.1 % (0.0-3.0); HEMATOCRIT 43.4 % (42.0-52.0); HEMOGLOBIN 14.2 g/dl (13.5-17.5); LYMPH # 1.7 10^3/uL (1.5-5.0); LYMPH % 9.4 % (24.0-44.0); MEAN CORPUSCULAR HEMOGLOBIN 30.9 pg (27.0-33.0); MEAN CORPUSCULAR HGB CONC 32.7 g/dl (32.0-36.5); MEAN CORPUSCULAR VOLUME 94.3 fl (80.0-96.0); MONO # 1.8 10^3/uL (0.0-0.8); MONO % 9.8 % (0.0-5.0); NEUTROPHILS # 14.8 10^3/uL (1.5-8.5); NEUTROPHILS % 79.9 % (36.0-66.0); PLATELET COUNT, AUTOMATED 201 10^3/uL (150-450); WHITE BLOOD COUNT 18.5 10^3/uL (4.0-10.0)
[2019-10-13] MEDS ORDERED: FLUO20CA22 (12:09)
[2019-10-13 12:21] LABS: ALBUMIN 3.2 GM/DL (3.2-5.2); ALT/SGPT 12 U/L (12-78); BILIRUBIN,DIRECT 0.3 MG/DL (0.0-0.2); BILIRUBIN,TOTAL 0.9 MG/DL (0.2-1.0); BLOOD UREA NITROGEN 9 MG/DL (7-18); CALCIUM LEVEL 8.6 MG/DL (8.8-10.2); CARBON DIOXIDE LEVEL 27 MEQ/L (21-32); CHLORIDE LEVEL 101 MEQ/L (98-107); CREATININE FOR GFR 0.91 MG/DL (0.70-1.30); GLOMERULAR FILTRATION RATE > 60.0 (>49); GLUCOSE, FASTING 112 MG/DL (70-100); LIPASE 65 U/L (73-393); POTASSIUM SERUM 4.1 MEQ/L (3.5-5.1); SODIUM LEVEL 133 MEQ/L (136-145); TOTAL PROTEIN 6.8 GM/DL (6.4-8.2)
[2019-10-13] MEDS ORDERED: ISOVUE-370 76% 100ML VIAL As Ordered ONE (13:38)
[2019-10-13] MEDS ORDERED: CIPR-249 PO (15:26)
[2019-10-13] MEDS ORDERED: CIPROFLOXACIN 400 MG in IV 1 EA IV ONE (15:30)
[2019-10-13] MEDS ORDERED: ACETAMINOPHEN 500 MG TAB PO ONE (16:00)
[2019-10-13] MEDS ORDERED: ONDANSETRON 4 MG ORAL DISINTEGRATING TAB PO ONE (17:15)
[2019-10-13 18:21] VITALS: BP 144/78
--- NOTE | 2019-10-14 00:41 | REP ---
REASON FOR EXAM: History of costovertebral angle tenderness and urinary incontinence along with elevated white blood cell count. The latest prior exam for comparison is a noncontrast-enhanced examination of 11/02/2016, and the latest prior contrast-enhanced examination for comparison is 06/08/2008. CONTRAST TODAY: 100 mL Isovue-370. The lung bases are essentially clear and unchanged. The liver, gallbladder, spleen, pancreas, adrenal glands, and kidneys are essentially unchanged from the prior exams. The Bosniak class I left renal cyst seen on the prior exams is again seen today and has not developed septations or mural nodules. The abdominal aorta and para-aortic regions are within normal limits and unchanged. The intra-abdominal bowel loops and their mesenteries are within normal limits. No free fluid or free air is in the abdomen or pelvis. There is a desmoplastic appearing reaction in the left hemipelvic sigmoid colon mesentery. This abuts the posterior right wall of the urinary bladder. There is sigmoid colon diverticulosis. Bone window technique throughout the examination shows chronic changes, status quo. IMPRESSION: 1. There is evidence of chronic scarring in the sigmoid colon mesentery secondary to sigmoid colon diverticulitis, and this scar tissue may be tethered to the urinary bladder. The charles of the urinary bladder appear thickened, and I cannot completely rule out the possibility of an enterovesicular fistula, although none is definitely visualized today. Certainly, concomitant cystitis should be clinically evaluated for. Additionally, I cannot rule out the possibility of focal sigmoid colon diverticulitis superimposed upon chronic change. 2. Other findings as described above. Electronically Signed by Ankush Dukes DO 10/14/2019 11:25 A
== END 2019-10-13 18:31 | disposition home or self-care (01) ==
LOC: M ED 10:42
DX: N39.0 Urinary tract infection, site not specified (principal); N28.1 Cyst of kidney, acquired; M54.30 Sciatica, unspecified side; K21.9 Gastro-esophageal reflux disease without esophagitis; K57.92 Diverticulitis of intestine, part unspecified, without perforation or abscess without bleeding; Z96.641 Presence of right artificial hip joint; F12.10 Cannabis abuse, uncomplicated
CPT/HCPCS: 36415; 74177; 80048; 80076; 81001; 83605; 83690; 85025; 87040; 87088; 87186; 96361; 96365; 96374; 96375; 99284; J0744; J1885; J2405; Q0162; Q9967

== ENCOUNTER → 2019-10-15 | Outpatient (CLI) | payer OTHER ==
[~2019-10-15] MED LIST changes: +FLUO20CA22; +HYDR-3715 PO; +NORC1TAB7 PO
[2019-10-15 13:01] LABS: HEMATOCRIT 42.6 % (42.0-52.0); HEMOGLOBIN 13.7 g/dl (13.5-17.5); MEAN CORPUSCULAR HEMOGLOBIN 30.3 pg (27.0-33.0); MEAN CORPUSCULAR HGB CONC 32.2 g/dl (32.0-36.5); MEAN CORPUSCULAR VOLUME 94.2 fl (80.0-96.0); PLATELET COUNT, AUTOMATED 208 10^3/uL (150-450); RED BLOOD COUNT 4.52 10^6/uL (4.30-6.10); WHITE BLOOD COUNT 9.3 10^3/uL (4.0-10.0)
== END ==
LOC: M LAB 12:29
PROVIDERS: ATTEND Nurse Practitioner Family
DX: N12 Tubulo-interstitial nephritis, not specified as acute or chronic (principal)

== ENCOUNTER 2019-12-07 21:41 | Emergency (ER) | payer OTHER ==
[~2019-12-07] VITALS: Ht 177.8 cm; Wt 108.2 kg
[~2019-12-07 21:41] MED LIST changes: -HYDR-3715 PO; -NORC1TAB7 PO
[2019-12-07] MEDS ORDERED: NS 1,000 ML IV ONE (23:30)
[2019-12-07] MEDS ORDERED: MORPHINE 2 MG/ML 1ML VIAL (J2270) IV ONE (23:30)
[2019-12-07] MEDS ORDERED: ONDANSETRON 4MG/2ML VIAL IV ONE (23:30)
[2019-12-07 23:35] LABS: BASO % 0.2 % (0.0-1.0); EOS # 0.1 10^3/uL (0.0-0.5); EOS % 0.5 % (0.0-3.0); HEMATOCRIT 39.2 % (42.0-52.0); HEMOGLOBIN 13.5 g/dl (13.5-17.5); LYMPH # 2.3 10^3/uL (1.5-5.0); LYMPH % 18.2 % (24.0-44.0); MEAN CORPUSCULAR HEMOGLOBIN 31.9 pg (27.0-33.0); MEAN CORPUSCULAR HGB CONC 34.4 g/dl (32.0-36.5); MEAN CORPUSCULAR VOLUME 92.7 fl (80.0-96.0); MONO # 1.8 10^3/uL (0.0-0.8); MONO % 14.5 % (0.0-5.0); NEUTROPHILS # 8.3 10^3/uL (1.5-8.5); NEUTROPHILS % 66.3 % (36.0-66.0); RED BLOOD COUNT 4.23 10^6/uL (4.30-6.10); WHITE BLOOD COUNT 12.5 10^3/uL (4.0-10.0)
[2019-12-08 00:08] LABS: ALT/SGPT 18 U/L (12-78); BILIRUBIN,DIRECT 0.2 MG/DL (0.0-0.2); BILIRUBIN,TOTAL 0.8 MG/DL (0.2-1.0); BLOOD UREA NITROGEN 9 MG/DL (7-18); CALCIUM LEVEL 8.5 MG/DL (8.8-10.2); CARBON DIOXIDE LEVEL 24 MEQ/L (21-32); CHLORIDE LEVEL 99 MEQ/L (98-107); CREATININE FOR GFR 0.87 MG/DL (0.70-1.30); GLOMERULAR FILTRATION RATE > 60.0 (>49); GLUCOSE, FASTING 97 MG/DL (70-100); POTASSIUM SERUM 4.3 MEQ/L (3.5-5.1); SODIUM LEVEL 130 MEQ/L (136-145); TOTAL PROTEIN 6.8 GM/DL (6.4-8.2)
[2019-12-08 00:09] LABS: ALBUMIN 3.3 GM/DL (3.2-5.2); LIPASE 81 U/L (73-393)
[2019-12-08] MEDS ORDERED: ISOVUE-370 76% 100ML VIAL As Ordered ONE (00:11)
[2019-12-08 00:18] LABS: AMPHETAMINES LEVEL URINE NEGATIVE (NEGATIVE); BARBITURATES URINE NEGATIVE (NEGATIVE); BENZODIAZEPINES URINE NEGATIVE (NEGATIVE); CANNABINOIDS URINE POSITIVE (NEGATIVE); COCAINE METABOLITE URINE NEGATIVE (NEGATIVE); METHADONE URINE NEGATIVE (NEGATIVE); OPIATES URINE NEGATIVE (NEGATIVE); PHENCYCLIDINE URINE NEGATIVE (NEGATIVE)
--- NOTE | 2019-12-08 00:41 | REPVR ---
PROCEDURE INFORMATION: Exam: CT Abdomen And Pelvis With Contrast Exam date and time: 12/08/2019 12:07 AM Age: 64 years old Clinical indication: Abdominal pain; Localized; Lower; Additional info: Lower abd pain, elev wbc, incontinence TECHNIQUE: Imaging protocol: Computed tomography of the abdomen and pelvis with intravenous contrast. Radiation optimization: All CT scans at this facility use at least one of these dose optimization techniques: automated exposure control; mA and/or kV adjustment per patient size (includes targeted exams where dose is matched to clinical indication); or iterative reconstruction. Contrast material: ISO; Contrast volume: 100 ml; Contrast route: INTRAVENOUS (IV); COMPARISON: CT ABD/PEL W/IV CONTRAST ONLY 10/13/2019 1:32 PM FINDINGS: Lungs: Linear atelectasis or scarring at the left base. Liver: Mild hepatomegaly and steatosis. Gallbladder and bile ducts: Normal. No calcified stones. No ductal dilation. Pancreas: Normal. No ductal dilation. Spleen: Normal. No splenomegaly. Adrenals: Normal. No mass. Kidneys and ureters: Simple exophytic left renal cyst. Nonspecific bilateral perinephric fat stranding. Nonobstructive right nephrolithiasis. No hydronephrosis. 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 Stomach and bowel: Diverticulosis of the colon. Acute diverticulitis involving sigmoid colon with apparent fistulous communication with the adjacent urinary bladder dome. Appendix: No evidence of appendicitis. Intraperitoneal space: No gross pneumoperitoneum or discrete drainable abscess. Vasculature: Atherosclerotic disease of the abdominal aorta. Lymph nodes: Scattered borderline enlarged retroperitoneal and mesenteric lymph nodes. Bladder: See above. Reproductive: Unremarkable as visualized. Bones/joints: Status post right hip arthroplasty. Extensive beam hardening artifact from the hardware limits evaluation of adjacent organs. Severe osteoarthritis in the left hip. Mild anterolisthesis of L5 on S1 secondary to bilateral L5 pars interarticularis defects. Stenosis of the spinal canal at L3-L4. Severe bilateral neural foraminal stenosis at L3-L4 and L4-L5. Soft tissues: Unremarkable. IMPRESSION: Diverticulosis of the colon. Acute diverticulitis involving sigmoid colon with apparent fistulous communication with the adjacent urinary bladder dome. No gross pneumoperitoneum or discrete drainable abscess. COMMENTS: Consistent with the [employer]'s Incidental Findings Committee white paper (J Am Kenneth Radiol 2018): Any incidental renal lesion less than 1.0 cm or classified as too small to characterize, or any incidental cystic renal lesion characterized as simple-appearing, is likely benign. No follow-up imaging is recommended for these lesions per consensus recommendations based on imaging criteria. Electronically signed by: Marco Antonio Szymanski On 12/08/2019 00:40:42 AM
[2019-12-08] MEDS ORDERED: NORC1TAB7 PO (01:12)
[2019-12-08] MEDS ORDERED: FLAG500T PO (01:12)
[2019-12-08] MEDS ORDERED: CIPR-249 PO (01:12)
[2019-12-08] MEDS ORDERED: CIPROFLOXACIN 500MG TABLET PO ONE (01:15)
[2019-12-08] MEDS ORDERED: metroNIDAZOLE (FLAGYL) 500MG TABLET PO ONE (01:15)
[2019-12-08] MEDS ORDERED: NORCO 5/325MG TABLET (BULK FOR ED) PO ONE (01:15)
[2019-12-08 02:12] VITALS: BP 124/85
== END 2019-12-08 02:15 | disposition home or self-care (01) ==
LOC: M ED 21:41
DX: N32.1 Vesicointestinal fistula (principal); K57.32 Diverticulitis of large intestine without perforation or abscess without bleeding; K21.9 Gastro-esophageal reflux disease without esophagitis; K86.1 Other chronic pancreatitis; F12.10 Cannabis abuse, uncomplicated; F17.210 Nicotine dependence, cigarettes, uncomplicated; Z79.899 Other long term (current) drug therapy
CPT/HCPCS: 36415; 74177; 80048; 80076; 80307; 81001; 83690; 85025; 87088; 87186; 96361; 96374; 96375; 99284; J2270; J2405; Q9967

== ENCOUNTER → 2019-12-21 | Outpatient (CLI) | payer OTHER ==
[~2019-12-21] MED LIST changes: +HYDR-3715 PO; +NORC1TAB7 PO
[2019-12-21 15:47] LABS: HEMATOCRIT 38.6 % (42.0-52.0); HEMOGLOBIN 12.5 g/dl (13.5-17.5); MEAN CORPUSCULAR HEMOGLOBIN 30.9 pg (27.0-33.0); MEAN CORPUSCULAR HGB CONC 32.4 g/dl (32.0-36.5); MEAN CORPUSCULAR VOLUME 95.3 fl (80.0-96.0); PLATELET COUNT, AUTOMATED 220 10^3/uL (150-450); RED BLOOD COUNT 4.05 10^6/uL (4.30-6.10); WHITE BLOOD COUNT 8.3 10^3/uL (4.0-10.0)
[2019-12-21 16:18] LABS: ALBUMIN 3.2 GM/DL (3.2-5.2); ALT/SGPT 22 U/L (12-78); BILIRUBIN,TOTAL 0.3 MG/DL (0.2-1.0); BLOOD UREA NITROGEN 12 MG/DL (7-18); CALCIUM LEVEL 8.6 MG/DL (8.8-10.2); CARBON DIOXIDE LEVEL 29 MEQ/L (21-32); CHLORIDE LEVEL 107 MEQ/L (98-107); CREATININE FOR GFR 0.92 MG/DL (0.70-1.30); GLOMERULAR FILTRATION RATE > 60.0 (>49); GLUCOSE, FASTING 89 MG/DL (70-100); SODIUM LEVEL 141 MEQ/L (136-145); TOTAL PROTEIN 6.4 GM/DL (6.4-8.2)
== END ==
LOC: M LAB 15:14
PROVIDERS: ATTEND Student in an Organized Health Care Education/Training Program
DX: Z01.812 Encounter for preprocedural laboratory examination (principal)

== ENCOUNTER → 2019-12-26 | Outpatient (CLI) | payer OTHER | LOC: M LABSMTC 09:07 | PROVIDERS: ATTEND Anesthesiology | DX: Z01.812 Encounter for preprocedural laboratory examination (principal); Z20.828 Contact with and (suspected) exposure to other viral communicable diseases | CPT/HCPCS: C9803; U0003 ==

== ENCOUNTER 2019-12-31 06:15 | Inpatient (IN) | payer OTHER ==
[~2019-12-31] VITALS: Ht 180.3 cm; Wt 101.7 kg
[2019-12-31] VITALS (8 sets, daily range): BP systolic 127–168; BP diastolic 70–100
[~2019-12-31 06:15] MED LIST changes: -HYDR-3715 PO
[2019-12-31] MEDS ORDERED: BUPIVACAINE/EPIN 0.5% 30 ML VIAL As Ordered ONE (06:41)
[2019-12-31] MEDS ORDERED: BUPIVACAINE LIPOSOME/PF 1.3% 20ML VIAL (13.3MG/ML)(EXPAREL)(C9290 PER1MG) As Ordered ONE (06:42)
[2019-12-31] MEDS ORDERED: GLUCAGON INJ 1MG VIAL As Ordered ONE (06:42)
[2019-12-31] MEDS ORDERED: BUPIVACAINE HCL 0.25% 10ML VIAL As Ordered ONE (06:43)
[2019-12-31] MEDS ORDERED: ERTAPENEM SODIUM 1 GM in NS MINI-BAG PLUS 50 ML IV ONE ×2 (06:45→07:00)
[2019-12-31] MEDS ORDERED: MIDAZOLAM INJ 2MG/2ML VIAL (J2250 PER 1MG) As Ordered ONE (06:47)
[2019-12-31] MEDS ORDERED: ONDANSETRON 4MG/2ML VIAL As Ordered ONE ×2 (06:48→10:37)
[2019-12-31] MEDS ORDERED: dexameTHASONE 4 MG/ML 1ML VIAL (J1100 PER 1MG) As Ordered ONE ×2 (06:48→06:49)
[2019-12-31] MEDS ORDERED: fentaNYL 250 MCG/5 ML INJECTION (J3010) As Ordered ONE (06:48)
[2019-12-31] MEDS ORDERED: PHENYLephrine HCL 500 MCG/5 ML (100MCG/ML) SYRINGE (J2370) As Ordered ONE (06:49)
[2019-12-31] MEDS ORDERED: ePHEDrine SULFATE 25 MG/5 ML(5MG/ML) SYRINGE As Ordered ONE (06:49)
[2019-12-31] MEDS ORDERED: SUGAMMADEX SODIUM 500 MG/5 ML VIAL (BRIDION) As Ordered ONE (06:49)
[2019-12-31] MEDS ORDERED: propofoL 200 MG/20 ML VIAL As Ordered ONE (06:49)
[2019-12-31] MEDS ORDERED: LIDOCAINE 2% 100MG/5ML SDV (FOR ANES.) As Ordered ONE (06:49)
[2019-12-31] MEDS ORDERED: ROCURONIUM BROMIDE 50 MG/5 ML VIAL As Ordered ONE ×2 (06:49→08:19)
[2019-12-31] MEDS ORDERED: LR 1,000 ML IV ONE (07:00)
[2019-12-31] MEDS ORDERED: ACETAMINOPHEN 1000MG 100ML IV BTL (OFIRMEV) (J0131 PER 10MG) As Ordered ONE (07:55)
[2019-12-31] MEDS ORDERED: GLYCOPYRROLATE INJ 0.2 MG/ML 2 ML VIAL As Ordered ONE (08:30)
[2019-12-31] MEDS ORDERED: LABETALOL 100MG/20ML VIAL As Ordered ONE ×2 (08:46→12:16)
[2019-12-31] MEDS ORDERED: HYDROmorphone HCL 2 MG/ML 1ML VIAL (J1170) As Ordered ONE (08:50)
[2019-12-31] MEDS ORDERED: MORPHINE 2 MG/ML 1ML VIAL (J2270) IV PRN ×2 (10:30)
[2019-12-31] MEDS ORDERED: IPRATROPIUM 0.5MG/ALBUTEROL 2.5MG INH SOL UD 3ML (DUONEB) NEB PRN (10:30)
[2019-12-31] MEDS: ONDANSETRON 4MG/2ML VIAL IV PRN ×2 (10:40→18:19)
[2019-12-31] MEDS ORDERED: METOCLOPRAMIDE INJ 10MG/2ML VIAL (J2765 PER 1) As Ordered ONE (10:53)
[2019-12-31] MEDS ORDERED: fentaNYL 100 MCG/2 ML INJECTION (J3010) As Ordered ONE (11:00)
[2019-12-31] MEDS: fentaNYL 100 MCG/2 ML INJECTION (J3010) IV PRN ×3 (11:02→11:14)
[2019-12-31] MEDS ORDERED: PROMETHAZINE INJ 25 MG/ML VIAL (J2550) As Ordered ONE (11:12)
[2019-12-31] MEDS ORDERED: oxyCODONE 5MG TAB PO PRN (11:15)
[2019-12-31] MEDS ORDERED: LR 1,000 ML IV SCH (11:15)
[2019-12-31] MEDS ORDERED: METOCLOPRAMIDE INJ 10MG/2ML VIAL (J2765 PER 1) IV PRN (11:15)
[2019-12-31] MEDS ORDERED: ONDANSETRON 4MG/2ML VIAL IV PRN (11:15)
[2019-12-31] MEDS ORDERED: PROMETHAZINE INJ 25 MG/ML VIAL (J2550) IV ONE ×2 (11:45→12:45)
[2019-12-31] MEDS: LABETALOL 100MG/20ML VIAL IV PRN ×2 (12:18→12:27)
[2019-12-31] MEDS: NS 1,000 ML IV SCH ×2 (13:14→21:17)
[2019-12-31] MEDS: PANTOPRAZOLE 40MG VIAL (C9113 PER 1) IV SCH (13:49)
[2019-12-31] MEDS: KETOROLAC 30 MG/ML 1ML VIAL IV SCH ×2 (13:50→18:19)
[2019-12-31] MEDS: IPRATROPIUM 0.5MG/ALBUTEROL 2.5MG INH SOL UD 3ML (DUONEB) NEB SCH ×2 (14:00→19:30)
[2019-12-31] MEDS: NORCO, ANEXSIA 5/325MG TABLET (HYDROcodone/ACETAMINOPHEN) PO PRN (21:17)
[2019-12-31] MEDS: ALVIMOPAN 12 MG CAPSULE (ENTEREG) PO SCH (21:17)
[2020-01-01] VITALS (7 sets, daily range): BP systolic 106–150; BP diastolic 61–79; O2SAT 92
[2020-01-01] MEDS: KETOROLAC 30 MG/ML 1ML VIAL IV SCH ×5 (00:35→23:37)
[2020-01-01] MEDS: IPRATROPIUM 0.5MG/ALBUTEROL 2.5MG INH SOL UD 3ML (DUONEB) NEB SCH ×4 (01:58→19:08)
[2020-01-01] MEDS: NS 1,000 ML IV SCH ×3 (05:23→20:04)
[2020-01-01 06:42] LABS: HEMATOCRIT 36.3 % (42.0-52.0); HEMOGLOBIN 11.9 g/dl (13.5-17.5); MEAN CORPUSCULAR HEMOGLOBIN 30.5 pg (27.0-33.0); MEAN CORPUSCULAR HGB CONC 32.8 g/dl (32.0-36.5); MEAN CORPUSCULAR VOLUME 93.1 fl (80.0-96.0); PLATELET COUNT, AUTOMATED 187 10^3/uL (150-450); WHITE BLOOD COUNT 8.3 10^3/uL (4.0-10.0)
[2020-01-01 06:54] LABS: BLOOD UREA NITROGEN 11 MG/DL (7-18); CALCIUM LEVEL 7.8 MG/DL (8.8-10.2); CARBON DIOXIDE LEVEL 27 MEQ/L (21-32); CHLORIDE LEVEL 108 MEQ/L (98-107); CREATININE FOR GFR 0.85 MG/DL (0.70-1.30); GLOMERULAR FILTRATION RATE > 60.0 (>49); GLUCOSE, FASTING 97 MG/DL (70-100); POTASSIUM SERUM 4.3 MEQ/L (3.5-5.1); SODIUM LEVEL 139 MEQ/L (136-145)
[2020-01-01] MEDS ORDERED: ERTAPENEM SODIUM 1 GM in NS MINI-BAG PLUS 50 ML IV ONE (08:00)
[2020-01-01] MEDS: ALVIMOPAN 12 MG CAPSULE (ENTEREG) PO SCH ×2 (08:09→20:04)
[2020-01-01] MEDS: PANTOPRAZOLE 40MG VIAL (C9113 PER 1) IV SCH (08:09)
--- NOTE | 2020-01-01 09:05 | IPNPDOC ---
Text Note Date of Service The patient was seen on 01/01/20. NOTE No acute events overnight. He is tolerating diet and has had some flatus and a small BM as well. Denies nausea or emesis, and he is ambulating around the room. Pain is controlled. VSSAF NAD abd - soft, TTP appropriate, dressings c/d/i, drain is serosanguinous labs - below A) 64y/o male s/p Lap colon resection for colovesical fistula P) flq diet amb in halls IS monitor labs keep payne in place await return of bowel function Yves Mao DO VS,Fishbone, I+O VS, Fishbone, I+O Laboratory Tests 01/01/20 05:48 Vital Signs Date Time Temp Pulse Resp B/P (MAP) Pulse Ox O2 Delivery O2 Flow Rate FiO2 01/01/20 07:15 92 Room Air 01/01/20 06:00 98.8 60 18 106/64 (78) 12/31/19 18:20 1.0 I&O- Last 24 Hours up to 6 AM 01/01/20 06:00 Intake Total 4100 ml Output Total 2490 ml Balance 1610 ml GT MAO DO Jan 01, 2020 09:05
[2020-01-01] MEDS: NORCO, ANEXSIA 5/325MG TABLET (HYDROcodone/ACETAMINOPHEN) PO PRN (18:13)
[2020-01-02 02:00] VITALS: BP 135/80
[2020-01-02 06:00] VITALS: BP 146/80
[2020-01-02 06:18] LABS: HEMATOCRIT 34.9 % (42.0-52.0); HEMOGLOBIN 11.3 g/dl (13.5-17.5); MEAN CORPUSCULAR HEMOGLOBIN 30.5 pg (27.0-33.0); MEAN CORPUSCULAR HGB CONC 32.4 g/dl (32.0-36.5); MEAN CORPUSCULAR VOLUME 94.3 fl (80.0-96.0); PLATELET COUNT, AUTOMATED 148 10^3/uL (150-450); WHITE BLOOD COUNT 5.4 10^3/uL (4.0-10.0)
[2020-01-02 06:38] LABS: BLOOD UREA NITROGEN 9 MG/DL (7-18); CALCIUM LEVEL 7.7 MG/DL (8.8-10.2); CARBON DIOXIDE LEVEL 26 MEQ/L (21-32); CHLORIDE LEVEL 113 MEQ/L (98-107); CREATININE FOR GFR 0.74 MG/DL (0.70-1.30); GLOMERULAR FILTRATION RATE > 60.0 (>49); GLUCOSE, FASTING 91 MG/DL (70-100); POTASSIUM SERUM 3.8 MEQ/L (3.5-5.1); SODIUM LEVEL 144 MEQ/L (136-145)
[2020-01-02] MEDS: KETOROLAC 30 MG/ML 1ML VIAL IV SCH ×3 (06:50→18:15)
[2020-01-02] MEDS: NS 1,000 ML IV SCH (06:50)
[2020-01-02] MEDS: IPRATROPIUM 0.5MG/ALBUTEROL 2.5MG INH SOL UD 3ML (DUONEB) NEB SCH ×3 (07:39→19:58)
[2020-01-02] MEDS: ALVIMOPAN 12 MG CAPSULE (ENTEREG) PO SCH ×2 (08:13→21:05)
[2020-01-02] MEDS: PANTOPRAZOLE 40MG VIAL (C9113 PER 1) IV SCH (08:13)
--- NOTE | 2020-01-02 08:34 | IPNPDOC ---
Text Note Date of Service The patient was seen on 01/02/20. NOTE No acute events overnight. He is tolerating diet and has had some more flatus. Denies nausea or emesis, and he is ambulating around the montero. Pain is controlled. VSSAF NAD abd - soft, TTP appropriate, dressings removed and incision is c/d/i, drain is serosanguinous labs - below A) 64y/o male s/p Lap colon resection for colovesical fistula P) reg diet amb in halls IS monitor labs keep payne in place d/c ivf await return of bowel function Yves Mao DO VS,Fishbone, I+O VS, Fishbone, I+O Laboratory Tests 01/02/20 05:49 Vital Signs Date Time Temp Pulse Resp B/P (MAP) Pulse Ox O2 Delivery O2 Flow Rate FiO2 01/02/20 06:00 98.2 67 20 146/80 (102) 93 Room Air 12/31/19 18:20 1.0 I&O- Last 24 Hours up to 6 AM 01/02/20 06:00 Intake Total 4400 ml Output Total 2945 ml Balance 1455 ml GT MAO DO Jan 02, 2020 08:34
[2020-01-02] MEDS: NORCO, ANEXSIA 5/325MG TABLET (HYDROcodone/ACETAMINOPHEN) PO PRN ×2 (09:19→22:37)
[2020-01-02 10:00] VITALS: BP 121/69
[2020-01-02 14:00] VITALS: BP 127/72
[2020-01-02 18:00] VITALS: BP 163/89
[2020-01-02 22:00] VITALS: BP 148/84
[2020-01-03] VITALS (9 sets, daily range): BP systolic 137–153; BP diastolic 60–91
[2020-01-03] MEDS: KETOROLAC 30 MG/ML 1ML VIAL IV SCH ×4 (01:10→17:30)
[2020-01-03 06:17] LABS: HEMATOCRIT 38.7 % (42.0-52.0); HEMOGLOBIN 12.6 g/dl (13.5-17.5); MEAN CORPUSCULAR HEMOGLOBIN 30.2 pg (27.0-33.0); MEAN CORPUSCULAR HGB CONC 32.6 g/dl (32.0-36.5); MEAN CORPUSCULAR VOLUME 92.8 fl (80.0-96.0); PLATELET COUNT, AUTOMATED 168 10^3/uL (150-450); RED BLOOD COUNT 4.17 10^6/uL (4.30-6.10); WHITE BLOOD COUNT 5.9 10^3/uL (4.0-10.0)
[2020-01-03 06:44] LABS: BLOOD UREA NITROGEN 11 MG/DL (7-18); CALCIUM LEVEL 8.4 MG/DL (8.8-10.2); CARBON DIOXIDE LEVEL 29 MEQ/L (21-32); CHLORIDE LEVEL 109 MEQ/L (98-107); CREATININE FOR GFR 0.85 MG/DL (0.70-1.30); GLOMERULAR FILTRATION RATE > 60.0 (>49); GLUCOSE, FASTING 84 MG/DL (70-100); POTASSIUM SERUM 4.3 MEQ/L (3.5-5.1); SODIUM LEVEL 141 MEQ/L (136-145)
[2020-01-03] MEDS: IPRATROPIUM 0.5MG/ALBUTEROL 2.5MG INH SOL UD 3ML (DUONEB) NEB SCH ×2 (07:05→20:24)
[2020-01-03] MEDS: ALVIMOPAN 12 MG CAPSULE (ENTEREG) PO SCH ×2 (09:18→20:20)
[2020-01-03] MEDS: PANTOPRAZOLE 40MG VIAL (C9113 PER 1) IV SCH (09:19)
[2020-01-03] MEDS ORDERED: CYSTO-CONRAY II 17.2% 250ML VIAL (Q9958) As Ordered ONE ×2 (11:42→15:28)
[2020-01-03] MEDS: NORCO, ANEXSIA 5/325MG TABLET (HYDROcodone/ACETAMINOPHEN) PO PRN (14:43)
[2020-01-04] MEDS: KETOROLAC 30 MG/ML 1ML VIAL IV SCH ×3 (00:07→12:25)
[2020-01-04 02:00] VITALS: BP 139/92
[2020-01-04 06:00] VITALS: BP 142/92
[2020-01-04 06:12] LABS: HEMATOCRIT 39.9 % (42.0-52.0); HEMOGLOBIN 13.2 g/dl (13.5-17.5); MEAN CORPUSCULAR HEMOGLOBIN 30.3 pg (27.0-33.0); MEAN CORPUSCULAR HGB CONC 33.1 g/dl (32.0-36.5); MEAN CORPUSCULAR VOLUME 91.5 fl (80.0-96.0); PLATELET COUNT, AUTOMATED 164 10^3/uL (150-450); RED BLOOD COUNT 4.36 10^6/uL (4.30-6.10); WHITE BLOOD COUNT 6.3 10^3/uL (4.0-10.0)
[2020-01-04 06:29] LABS: BLOOD UREA NITROGEN 15 MG/DL (7-18); CALCIUM LEVEL 8.9 MG/DL (8.8-10.2); CARBON DIOXIDE LEVEL 27 MEQ/L (21-32); CHLORIDE LEVEL 107 MEQ/L (98-107); CREATININE FOR GFR 0.82 MG/DL (0.70-1.30); GLOMERULAR FILTRATION RATE > 60.0 (>49); GLUCOSE, FASTING 92 MG/DL (70-100); POTASSIUM SERUM 4.2 MEQ/L (3.5-5.1); SODIUM LEVEL 140 MEQ/L (136-145)
[2020-01-04] MEDS: IPRATROPIUM 0.5MG/ALBUTEROL 2.5MG INH SOL UD 3ML (DUONEB) NEB SCH (07:02)
[2020-01-04] MEDS: PANTOPRAZOLE 40MG VIAL (C9113 PER 1) IV SCH (09:39)
[2020-01-04] MEDS: ALVIMOPAN 12 MG CAPSULE (ENTEREG) PO SCH (09:39)
[2020-01-04 10:00] VITALS: BP 118/66
[2020-01-04] MEDS ORDERED: HYDR-3715 PO (11:02)
--- NOTE | 2020-01-04 14:46 | HPE ---
DATE OF ADMISSION: 12/31/2019 CHIEF COMPLAINT: Diverticulitis with colovesical fistula. BRIEF HISTORY OF PRESENT ILLNESS: Patient is a 64-year-old male who presented to the emergency room with most recently an episode of urinary tract infection and underwent a cystoscopy a couple weeks and was told that he had a colovesical fistula, and he was referred to my office for further recommendations. CT scans were reviewed. He indeed has a pocket behind the bladder on top of the colon, where there was a previous episode of diverticulitis. Followup CT scans show air bubbles still in that area and some thickening of his bladder in that area as well as well as thickening of the colon and with colovesical fistula present. MEDICAL HISTORY: Significant for: 1. History of idiopathic progressive polyneuropathy. 2. History of obesity. 3. History of sacroiliitis. 4. History of lumbar spondylosis. 5. History of neck pain. 6. History of spinal stenosis. 7. Depression. 8. Arthritis. 9. Diverticulitis. 10. Anxiety. 11. Right hip surgery. 12. Colonoscopies. MEDICATIONS: Fluoxetine, Tylenol. PHYSICAL EXAMINATION: Reveals a 64-year-old male who looks stated age. HEENT: Unremarkable. NECK: Supple without adenopathy. LUNGS: Clear to auscultation with crackles, wheezes, or rhonchi. HEART: Regular without murmur. ABDOMEN: Soft, nondistended, nontender. No guarding, no rebound, no peritoneal signs are appreciated. He does feel some pressure in the suprapubic area without guarding, rebound, or peritoneal signs, as previously described. IMPRESSION AND PLAN: Patient has evidence of previous episodes of diverticulitis with most recently evidence of abnormality on cystoscopy consistent with a colovesical fistula. At this point, my recommendation is to have him proceed with a sigmoid colectomy. I have instructed him that his last colonoscopy did indeed reveal a diverticulosis. No evidence of masses. I have offered him options to proceed with a colonoscopy, but I feel that we have direct evidence of an abnormality at this time, and I would recommend trying to avoid any additional persistence of infection, inflammatory process present, and proceed with operative intervention. He understands that we plan o a laparoscopic sigmoid resection; however, it may be open if too much scarring or needs arise to proceed with an open operative intervention. The risks include, but are not limited to, infection, bleeding, damage to surrounding structures, including bowel, bladder, nerve, vessels, kidney, ureter, need for colostomy, anastomotic leak, etc. He also understands postoperatively he may need his Webster catheter in for a prolonged period of time as well as some antibiotics postoperatively. He will be given a mechanical as well as antibiotic bowel prep preoperatively and will receive intravenous (IV) antibiotics the day of surgery as well as postoperative day #1 and will probably be hospitalized from 3-5 days, depending on his overall course. He understands and would like to proceed as planned. GWENDOLYN
--- NOTE | 2020-01-04 15:17 | HPE ---
DATE OF ADMISSION: 12/28/2019 BRIEF HISTORY OF PRESENT ILLNESS: The patient is a 64-year-old male, who presents to my office with evidence of a colovesical fistula seen on cystoscopy. He was seen earlier this year in October for urinary issues, CAT showed some thickening and what I see is probable fluid collection behind his bladder and consistent with diverticulitis and a marilyn-diverticular abscess. In addition, he had a follow up CAT scan a month later that showed air bubble outside the lumen of the colon, right at the rectosigmoid junction and sitting abutting the bladder. He has had several episodes of pain and urinary incontinence. He has urgency associated with this. I am asked to see him for possible treatment for this. His last colonoscopy was with Dr. Abbott in 2018, which showed extensive sigmoid diverticulosis. This was also confirmed on his CAT scan and his last CAT showed some evidence of persistence but improving diverticulitis. PAST MEDICAL HISTORY: Significant for: 1. History of spinal stenosis 2. Depression. 3. Arthritis. 4. Diverticulitis. 5. Anxiety. 6. History of right hip surgery. 7. Colonoscopies CURRENT MEDICATIONS: Fluoxetine, as needed acetaminophen, hydrocodone as needed. PHYSICAL EXAMINATION: Reveals a 64-year-old male who looks his stated age. HEENT: Unremarkable. Neck: Supple without adenopathy. Lungs: Clear to auscultation without crackles, wheezes or rhonchi. Heart: Regular without murmur. Abdomen: Soft, non-distended, nontender, although he does feel some pressure in the lower abdomen/suprapubic area. Extremities: Warm and well perfused IMPRESSION/PLAN: The patient has evidence of a colovesical fistula associated with a previous diverticulitis attack; and at this point, given his abnormalities seen on cystoscopy, my recommendation is to proceed with a laparoscopic sigmoid colectomy. We have had extended discussion concerning operative intervention, the risks, as well as benefits associated with this and those included, but not limited to infection, bleeding, damage to surrounding structures including bowel, bladder, nerve vessels, kidney, ureter, need for open operative intervention, anastomotic leak, need for colostomy. The patient understands and would like to proceed with this. He will undergo mechanical, as well as antibiotic bowel prep preoperatively in the preoperative area. He will have preoperative antibiotics, TEDs, sequentials, a Webster catheter. I anticipate he will probably be hospitalized for 3 to 5 days depending on his overall postoperative course. GWENDOLYN
--- NOTE | 2020-01-10 09:12 | RO ---
DATE OF OPERATION: 12/31/19 PREOPERATIVE DIAGNOSIS: Diverticulitis with colovesical fistula. POSTOPERATIVE DIAGNOSIS: Diverticulitis with colovesical fistula. PROCEDURE: Laparoscopic sigmoid colectomy with coloproctostomy. SURGEON: Domenic Tripp MD EMBOSSOGRAPH OPERATOR: Dr. Galaviz (provided retraction, exposure, assistance with anastomosis and abnormal wall closure). EBL: Minimal. FLUIDS: Crystalloid. BRIEF PROCEDURE SUMMARY: The patient was brought to the operating room, was given general anesthesia. After adequate anesthesia and preoperative antibiotics were given the patient was prepped and draped in usual sterile fashion. A supraumbilical incision was made with skin knife, blunt dissection was carried down to fascia. Veress needle placed into the abdominal cavity and insufflated to 15 mm pressure. Dilating 10 mm trocar was placed at this time and under direct visualization two left lateral 5 mm trocars were placed and right lateral and right lower quadrant 5 and 12 mm trocars were placed respectively. The patient was placed in steep Trendelenburg position and at this time the sigmoid colon was seen quite thickened and attached to the posterior aspect of the bladder and this was taken down with Harmonic scalpel, taking care to stay on the colon/bladder wall/peritoneum interface. In any case, after mobilizing this area, there were still some adhesions that were deep down in the rectum area itself and these were able to be taken down with Harmonic scalpel along the rectal mesentery as well, opening up this peritoneum on both sides, mobilizing the area quite nicely. Proximally the white line of Toldt was taken down on the descending colon and then off the vessels of the left hand side. Once this was mobilized and then on the right side the same was performed revealing the rectal branch of the sigmoid artery and I was able to come behind this nicely in an avascular plane this was opened up nicely down to the distal rectum area. Attempts at mobilizing the area between the rectum and these vessels was much more fibrosed and difficult to get through. Thus, attention was planned to take this vessel more proximally in less thickened, inflamed tissue. Proximal to the vessels the mesentery was entered and a nice window was performed and under direct visualization an Tebbetts 60 stapler was used to transect the vessels, good hemostasis was achieved at this time. Distally good window behind the proximal rectum was made with Harmonic scalpel. Once this was down on soft rectal wall the rectum was transected using Tebbetts green load. The mesentery was taken with Harmonic scalpel. However, there was oozing from the wound from some backbleeding and thus a vascular stapler was placed across this area. The more proximal bowel was again mobilized making sure that this was off Gerotas on the left hand side and once this was adequately mobilized there was quite a redundancy to the sigmoid colon and this was able to be brought down into the pelvis quite nicely. The colon was brought out through a periumbilical incision after this was enlarged using skin knife, electrocautery through the skin, subcutaneous tissue and fascia. A 28 EEA stapler/anvil was placed in the proximal portion, the bowel was resected using Tebbetts 60 green load and the midline was closed over the top of this with #1 Vicryl in running manner. The abdomen was insufflated again and under direct visualization an EEA stapler anastomosis was created. This was placed underwater, air insufflation revealed no drainage and no air leak. #19 Ron-Griggs drain was left in the bed of the dissection. The right lower quadrant 12 mm trocar site was closed with Jared- Kathia and all incisions were closed with alma. Wound irrigation and glove change had been performed prior to the abdominal wall closure. All incisions were covered with dry, sterile dressings. The patient was awakened, extubated and brought to the recovery room awake, alert, hemodynamically stable. Sponge and needle counts correct x2. MTDD
--- NOTE | 2020-01-13 07:53 | REP ---
CYSTOGRAM The procedure was performed by SHARI Ibarra, under the direct supervision of Dr. Bhardwaj. The images were reviewed with Dr. Bhardwaj prior to dictation. The patient arrived to the Radiology Department with a Webster catheter already in place. 250 mL of Cysto-Conray II was instilled into the bladder in a retrograde flow. The bladder is normal in position and contour. There is no evidence of extravasation. IMPRESSION: 1. No extravasation of contrast was visualized. INCOMPLETE/verified/ml. MTDD
== END 2020-01-04 13:25 | disposition home or self-care (01) | DRG 221 ==
LOC: M OR 06:15 → M MSPAV 13:06
PROVIDERS: ADMIT Surgery; ATTEND Surgery
PROC: 0DBE4ZZ Excision of Large Intestine, Percutaneous Endoscopic Approach (ICD-10-PCS; principal; 2019-12-31 07:30)
DX: K57.32 Diverticulitis of large intestine without perforation or abscess without bleeding (principal); E66.9 Obesity, unspecified; N32.1 Vesicointestinal fistula; F32.9 Major depressive disorder, single episode, unspecified; M19.90 Unspecified osteoarthritis, unspecified site; F41.9 Anxiety disorder, unspecified; Z79.899 Other long term (current) drug therapy; M54.2 Cervicalgia; K57.30 Diverticulosis of large intestine without perforation or abscess without bleeding

== ENCOUNTER → 2020-03-10 | Outpatient (REF) | payer OTHER ==
[~2020-03-10] MED LIST changes: +HYDR-3715 PO
[2020-03-10 10:49] LABS: HEMATOCRIT 44.6 % (42.0-52.0); HEMOGLOBIN 14.1 g/dl (13.5-17.5); MEAN CORPUSCULAR HEMOGLOBIN 29.7 pg (27.0-33.0); MEAN CORPUSCULAR HGB CONC 31.6 g/dl (32.0-36.5); MEAN CORPUSCULAR VOLUME 93.9 fl (80.0-96.0); PLATELET COUNT, AUTOMATED 157 10^3/uL (150-450); RED BLOOD COUNT 4.75 10^6/uL (4.30-6.10); WHITE BLOOD COUNT 5.7 10^3/uL (4.0-10.0)
[2020-03-10 11:30] LABS: FOLATE 9.2 NG/ML; PERCENT SATURATION 35.7 % (19.7-50.0); TOTAL 25(OH) VITAMIN D 33.2 NG/ML (30.0-100.0)
== END ==
LOC: M SFHCPLAZ 09:14
PROVIDERS: ATTEND Family Medicine
DX: D64.9 Anemia, unspecified (principal); Z13.21 Encounter for screening for nutritional disorder

== ENCOUNTER → 2020-05-04 | Outpatient (CLI) | payer OTHER | LOC: M LABSMTC 10:11 | PROVIDERS: ATTEND Anesthesiology | DX: Z01.812 Encounter for preprocedural laboratory examination (principal); Z20.822 Contact with and (suspected) exposure to COVID-19 ==

== ENCOUNTER 2020-05-09 07:10 | Day surgery (SDC) | payer OTHER ==
[~2020-05-09] VITALS: Ht 177.8 cm; Wt 109.8 kg
[~2020-05-09 07:10] MED LIST changes: +NS 1,000 ML IV ONE; +SIMETHICONE 40MG/0.6ML DROPS 30ML As Ordered ONE
--- OUTSIDE RECORDS SUMMARY | 2020-05-09 07:16 | CCD ---
Author Author [facility] Organization [facility] em[facility] Address Unknown Phone Unavailable Care Team Providers Care Plexiglas Former Name Role Phone KenyattaJenelle Unavailable PROBLEMS Type Condition ICD9-CM Code [id number] Code Onset Dates Condition S tatus SNOMED Code Notes Problem Hypocalcemia E83.51 Active 0489444 Problem Cervical myofascial pain syndrome M79.1 Active 317237469 Problem Cannabis dependence, in remission F12.21 Active 021280337 Problem Insomnia, unspecified G47.00 Active 870428687 Problem Prediabetes R73.03 Active 504328075 Problem Primary osteoarthritis of both hips M16.0 Acti ve 907018147 Problem ANGELA (obstructive sleep apnea) G47.33 Active 78 567486 Problem Melena K92.1 Active 9321681 Problem Obesity (BMI 30-39.9) E66.9 Active 448369166 Problem Vitamin D deficiency E55.9 Active 22861098 Problem Anxiety F41.9 Active 05091127 Problem Pyelonephritis, acute N10 Active 28423040 Problem Bladder wall thickening N32.89 Active 49388432 Problem S/P colectomy Z90.49 Active 671363179 Problem 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 Active 27865404 ALLERGIES No Known Allergies ENCOUNTERS from 1957 to 2020-03-24 Encounter Location Date Provider Diagnosis [address] [address] Mar, Jenelle You IMMUNIZATIONS No Information SOCIAL HISTORY Tobacco Use: Social History Observation Description Date Details (start date - stop date) Former Smoker Sex Assigned At : Social History Observation Description Sex Assigned At Unknown Education: Question Answer Notes Level of Education: 10 th grade Audit Question Answer Notes Total Score: 1 Interpretation: Alcohol Education Language: Question Answer Notes Languages spoken: Armenian Alevism: Question Answer Notes Alevism No yarsanism beliefs that would impact health care. Sexual Hx: Question Answer Notes Had sex in the last 12 months (vaginal, oral, or anal)? Yes Drug and Alcohol Question Answer Notes Total Score: 0 Interpretation: No problems reported Alcohol Screening: Question Answer Notes Did you have a drink containing alcohol in the past year? Ye s Points 1 Interpretation Negative How often did you have six or more drinks on one occas ion in the past year? Never (0 points) How many drinks did you have on a typica l day when you were drinking in the past year? 1 or 2 (0 points) How often did you have a drink containing alcohol in t he past year? Monthly or less (1 point) BMI Care Goal Follow-Up Question Answer Notes Above Normal BMI Follow-Up Giving encouragement to exercise Tobacco Use: Question Answer Notes Are you a: former smoker How long has it been since you last smoked? > 10 years REASON FOR REFERRAL No Information VITAL SIGNS No information MEDICATIONS Medication SIG (Take, Route, Frequency, Duration) Notes Start Da te End Date Status Hydrocodone-Acetaminophen 5-325 MG 1 tablet as needed Orally every 6 hrs Active Ciprofloxacin HCl 500 MG 1 tablet 1 hour prior to you r cystoscopy Orally Once for 1 days Oct, Not-Taking Calcium-Vitamin D3 600-400 MG-UNIT 1 tablet with a neno l Orally Twice a day for 30 day(s) Feb, Not-Taking Cipro 500 MG 1 tablet Orally every 12 hrs for 10 day(s) Not-Taking Atorvastatin Calcium 40 MG 1 tablet Orally Once a day for 30 day (s) Feb, Not-Taking Fluoxetine 20 MG 2 capsule in the morning Orally Once a day for 90 Active Melatonin 5 MG 1 tablet at bedtime as neede d with food Orally Once a day as needed for 30 day(s) Feb, Not-Taking Ambien 5 MG 1 tablet at bedtime Orally before bedtime as nee ded for 28 day(s) Active Tylenol Extra Strength 500 MG 1 tablet as needed Orall y every 6 hrs for 30 day(s) Active Trazodone HCl 50 MG 1 tablet at bedtime as neede d Orally before medtime for 28 day(s) Jan, Active Aspirin 81 MG 1 tablet Orally Once a day for 30 day(s) Feb, Not-Taking PROCEDURES No Information RESULTS No Results REASON FOR VISIT Notification letter MEDICAL (GENERAL) HISTORY Type Description Date Medical History anxiety Medical History insomnia Medical History Left hip pain d/t OA, follow ing Dr. Macias, hydrocodone from Dr. Macias Medical History reflux Medical History erectile dysfunction Medical History Hx ETOH abuse-last drink on 11/01/2019 Medical History simple L renal cyst 06/13 Medical History rosacea Medical History Prior tobacco user: 8 years, less than 1 pack per week, quit in 1959 per patient Medical History Colovescicular fistula s/p l aparoscopic sigmoid colectomy with coloproctostomy on 12/31/2019 Medical History Diverticulitis Medical History UTI/pyelonephritis Medical History Marijuna use, quit in Surgical History hip replacement R 2009 Surgical History laparoscopic sigmoid colecto my with coloproctostomy on 12/31/201912/2019 Goals Section No Information Health Concerns No Information MEDICAL EQUIPMENT No Information MENTAL STATUS No Information FUNCTIONAL STATUS No Information ASSESSMENTS No Information PLAN OF TREATMENT Medication Medication Name Sig Start Date Stop Date Trazodone HCl 50 MG 1 tablet at bedtime as neede d Orally before medtime for 28 day(s) Jan, Ambien 5 MG 1 tablet at bedtime Orally before bedtime as nee ded for 28 day(s) Next Appt Details Provider Name:Jenelle You, 2020-04-25 01 :00:00 PM, [address] [facility], [place], [place], [id number], Insurance Providers Payer Name Payer Address Payer Phone Insured Name Patient Relati onship to Insured Coverage Start Date Coverage End Date [facility] [address] [facility] [phone] HUBER COOK self
--- OUTSIDE RECORDS SUMMARY | 2020-05-09 07:16 | CCD ---
Author Author [facility] Organization [facility] em[facility] Address Unknown Phone Unavailable Care Team Providers Care Demonstrator Sewing Techniques Name Role Phone KenyattaJenelle Unavailable PROBLEMS Type Condition ICD9-CM Code [id number] Code Onset Dates Condition S tatus SNOMED Code Notes Problem Hypocalcemia E83.51 Active 5589129 Problem Cervical myofascial pain syndrome M79.1 Active 714288156 Problem Cannabis dependence, in remission F12.21 Active 609324970 Problem Insomnia, unspecified G47.00 Active 040352057 Problem Prediabetes R73.03 Active 739334192 Problem Primary osteoarthritis of both hips M16.0 Acti ve 894065328 Problem ANGELA (obstructive sleep apnea) G47.33 Active 78 721581 Problem Melena K92.1 Active 5455038 Problem Obesity (BMI 30-39.9) E66.9 Active 971217817 Problem Vitamin D deficiency E55.9 Active 42854668 Problem Anxiety F41.9 Active 21317055 Problem Pyelonephritis, acute N10 Active 54247729 Problem Bladder wall thickening N32.89 Active 04641588 Problem S/P colectomy Z90.49 Active 333549942 Problem 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 Active 36873441 ALLERGIES No Known Allergies ENCOUNTERS from 1955 to 2020-03-15 Encounter Location Date Provider Diagnosis [address] [address] Mar, Jenelle You IMMUNIZATIONS No Information SOCIAL HISTORY Tobacco Use: Social History Observation Description Date Details (start date - stop date) Former Smoker Sex Assigned At : Social History Observation Description Sex Assigned At Unknown Education: Question Answer Notes Level of Education: 10 th grade Audit Question Answer Notes Total Score: 1 Interpretation: Alcohol Education Language: Question Answer Notes Languages spoken: Mongolian Hindu: Question Answer Notes Hindu No baptism beliefs that would impact health care. Sexual [...] Information RESULTS No Results REASON FOR VISIT Cystoscopy report MEDICAL (GENERAL) HISTORY Type Description Date Medical [...] 28 day(s) Next Appt Details Provider Name:Jenelle Kenyatta, 2020-04-25 01 :00:00 PM, [address], [place], [id number], Insurance Providers Payer Name Payer Address Payer Phone Insured Name Patient Relati onship to Insured Coverage Start Date Coverage End Date [facility] [id number] [facility] [address] HUBER COOK self
--- OUTSIDE RECORDS SUMMARY | 2020-05-09 07:16 | CCD ---
Author Author [facility] Organization [facility] Address Unknown Phone Unavailable Care Team Providers Care Hair Dryer Name Role Phone KenyattaJenelle Unavailable PROBLEMS Type Condition ICD9-CM Code RQJ50-XL Code Onset Dates Condition S tatus SNOMED Code Notes Problem Cervical myofascial pain syndrome M79.1 Active 793727202 Problem Insomnia, unspecified G47.00 Active 873925460 Problem Hypocalcemia E83.51 Active 9469677 Problem Obesity (BMI 30-39.9) E66.9 Active 434514276 Problem Prediabetes R73.03 Active 348888056 Problem Primary osteoarthritis of both hips M16.0 Acti ve 529148507 Problem 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 Active 15618634 Problem Anxiety F41.9 Active 12819782 Problem Melena K92.1 Active 8664272 Problem Cannabis dependence, in remission F12.21 Active 589061418 Problem ANGELA (obstructive sleep apnea) G47.33 Active 78 168880 Problem Pyelonephritis, acute N10 Active 76583613 Problem Bladder wall thickening N32.89 Active 24606956 Problem S/P colectomy Z90.49 Active 151208874 ALLERGIES No Known Allergies ENCOUNTERS from 1955 to 2020-02-08 Encounter Location Date Provider Diagnosis [facility] Jazmin [address] [place] [id number] Feb, Jenelle You IMMUNIZATIONS No Information SOCIAL HISTORY Tobacco Use: Social History Observation Description Date Details (start date - stop date) Former Smoker Sex Assigned At : Social History Observation Description Sex Assigned At Unknown Education: Question Answer Notes Level of Education: 10 th grade Audit Question Answer Notes Total Score: 1 Interpretation: Alcohol Education Language: Question Answer Notes Languages spoken: Singaporean Hoahaoism: Question Answer Notes Hoahaoism No yarsanism beliefs that would impact health [...] MEDICATIONS Medication SIG (Take, Route, Frequency, Duration) Start Date En d Date Status Tylenol Extra Strength 500 MG 1 tablet as needed Orall y every 6 hrs for 30 day(s) Active Atorvastatin Calcium 40 MG 1 tablet Orally Once a day for 30 day(s) Feb, Not-Taking Melatonin 5 MG 1 tablet at bedtime as neede d with food Orally Once a day as needed for 30 day(s) Feb, Not-Taking Aspirin 81 MG 1 tablet Orally Once a day for 30 day(s) Feb, Not-Taking Cipro 500 MG 1 tablet Orally every 12 hrs for 10 day(s) Not-Taking Ciprofloxacin HCl 500 MG 1 tablet 1 hour prior to you r cystoscopy Orally Once for 1 days Oct, Not-Taking Fluoxetine 20 MG 2 capsule in the morning Orally Once a day for 90 Active Ambien 5 MG 1 tablet at bedtime Orally before bedtime as nee ded for 28 day(s) Active Trazodone HCl 50 MG 1 tablet at bedtime as neede d Orally before medtime for 28 day(s) Jan, Active Hydrocodone-Acetaminophen 5-325 MG 1 tablet as needed Orally every 6 hrs Active Calcium-Vitamin D3 600-400 MG-UNIT 1 tablet with a neno l Orally Twice a day for 30 day(s) Feb, Not-Taking PROCEDURES No Information RESULTS No Results REASON FOR VISIT refill MEDICAL (GENERAL) HISTORY Type Description Date Medical History anxiety Medical History insomnia Medical History R hip pain Medical History reflux Medical History erectile dysfunction Medical History ETOH abuse Medical History simple L renal cyst 06/13 Medical History rosacea Medical History Prior tobacco user: 8 years, less than 1 pack per week, quit more than 10 years ago Medical History Colovescicular fistula s/p l aparoscopic sigmoid colectomy with coloproctostomy on 12/31/2019 Medical History Diverticulitis Medical History UTI/pyelonephritis Surgical History hip replacement R 2010 Surgical History laparoscopic sigmoid colecto my with coloproctostomy on 12/31/201912/2019 Goals Section No Information Health Concerns No Information MEDICAL EQUIPMENT No Information MENTAL STATUS No Information FUNCTIONAL STATUS No Information ASSESSMENTS No Information PLAN OF TREATMENT Medication Medication Name Sig Start Date Stop Date Ambien 5 MG 1 tablet at bedtime Orally before bedtime as nee ded for 28 day(s) Trazodone HCl 50 MG 1 tablet at bedtime as neede d Orally before medtime for 28 day(s) Jan, Fluoxetine 20 MG 2 capsule in the morning Orally Once a day for 90 Insurance Providers Payer Name Payer Address Payer Phone Insured Name Patient Relati onship to Insured Coverage Start Date Coverage End Date REPLACED BY [facility] [address] [facility] [phone] HUBER COOK self
--- OUTSIDE RECORDS SUMMARY | 2020-05-09 07:16 | CCD ---
Author Author [facility] Organization [facility] ems Address Unknown Phone Unavailable Care Team Providers Care Pharmacy Graduate Intern Name Role Phone KenyattaJenelle Unavailable PROBLEMS Type Condition ICD9-CM Code [id number] Code Onset Dates Condition S tatus SNOMED Code Notes Problem Hypocalcemia E83.51 Active 7055327 Problem Cervical myofascial pain syndrome M79.1 Active 660586184 Problem Cannabis dependence, in remission F12.21 Active 266571171 Problem Insomnia, unspecified G47.00 Active 164065082 Problem Prediabetes R73.03 Active 647231008 Problem Primary osteoarthritis of both hips M16.0 Acti ve 632870681 Problem ANGELA (obstructive sleep apnea) G47.33 Active 78 914961 Problem Melena K92.1 Active 3920725 Problem Obesity (BMI 30-39.9) E66.9 Active 662794723 Problem Vitamin D deficiency E55.9 Active 32879207 Problem Anxiety F41.9 Active 39484170 Problem Pyelonephritis, acute N10 Active 25643677 Problem Bladder wall thickening N32.89 Active 57757550 Problem S/P colectomy Z90.49 Active 805805073 Problem 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 Active 28366425 ALLERGIES No Known Allergies ENCOUNTERS from 1955 to 2020-03-18 Encounter Location Date Provider Diagnosis [address] [address] Mar, Jenelle You IMMUNIZATIONS No Information SOCIAL HISTORY Tobacco Use: Social History Observation Description Date Details (start date - stop date) Former Smoker Sex Assigned At : Social History Observation Description Sex Assigned At Unknown Education: Question Answer Notes Level of Education: 10 th grade Audit Question Answer Notes Total Score: 1 Interpretation: Alcohol Education Language: Question Answer Notes Languages spoken: Occitan Orthodox: Question Answer Notes Orthodox No pentecostal beliefs that would impact health care. Sexual [...] Information RESULTS No Results REASON FOR VISIT Hydrocodone MEDICAL (GENERAL) HISTORY Type Description Date Medical [...] Name:Jenelle Kenyatta, 2020-04-25 01 :00:00 PM, [address] [facility], [place], [place], [id number], Insurance Providers Payer Name Payer Address Payer Phone Insured Name Patient Relati onship to Insured Coverage Start Date Coverage End Date [facility] [address] [facility] [phone] HUBER COOK self
--- OUTSIDE RECORDS SUMMARY | 2020-05-09 07:16 | CCD ---
Author Author [facility] em[facility] Organization [facility] ems Address Unknown Phone Unavailable Care Team Providers Care Ice Guard Inspector Name Role Phone KenyattaJenelle Unavailable PROBLEMS Type Condition ICD9-CM Code [id number] Code Onset Dates Condition S tatus SNOMED Code Notes Problem Cervical myofascial pain syndrome M79.1 Active 988377676 Problem Insomnia, unspecified G47.00 Active 846589325 Problem Hypocalcemia E83.51 Active 7324349 Problem Obesity (BMI 30-39.9) E66.9 Active 264635417 Problem Prediabetes R73.03 Active 404353130 Problem Primary osteoarthritis of both hips M16.0 Acti ve 340385794 Problem 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 Active 20758975 Problem Anxiety F41.9 Active 70425557 Problem Melena K92.1 Active 4529581 Problem Cannabis dependence, in remission F12.21 Active 002238208 Problem ANGELA (obstructive sleep apnea) G47.33 Active 78 279342 Problem Pyelonephritis, acute N10 Active 11193622 Problem Bladder wall thickening N32.89 Active 58302597 Problem S/P colectomy Z90.49 Active 079382783 ALLERGIES No Known Allergies ENCOUNTERS from 1955 to 2020-02-14 Encounter [place] [address] Feb, Jenlele You IMMUNIZATIONS No Information SOCIAL HISTORY Tobacco Use: Social History Observation Description Date Details (start date - stop date) Former Smoker Sex Assigned At : Social History Observation Description Sex Assigned At Unknown Education: Question Answer Notes Level of Education: 10 th grade Audit Question Answer Notes Total Score: 1 Interpretation: Alcohol Education Language: Question Answer Notes Languages spoken: German Orthodox: Question Answer Notes Orthodox No orthodoxy beliefs that would impact health care. Sexual [...] Information RESULTS No Results REASON FOR VISIT Follow up MEDICAL (GENERAL) HISTORY Type Description Date Medical [...] morning Orally Once a day for 90 Next Appt Details Provider Name:Jenellepayton You 2020-02-25 09 :45:00 AM, [address] [facility], [place], [address], Insurance Providers Payer Name Payer Address Payer Phone Insured Name Patient Relati onship to Insured Coverage Start Date Coverage End Date [facility] [address] [facility] [id number] HUBER COOK self
--- OUTSIDE RECORDS SUMMARY | 2020-05-09 07:16 | CCD ---
Author Author [facility] em[facility] Organization [facility] ems Address Unknown Phone Unavailable Care Team Providers Care Child Care Education Coordinator Name Role Phone KenyattaJenelle Unavailable PROBLEMS Type Condition ICD9-CM Code [id number] Code Onset Dates Condition S tatus SNOMED Code Notes Problem Hypocalcemia E83.51 Active 0005977 Problem Cervical myofascial pain syndrome M79.1 Active 419210559 Problem Cannabis dependence, in remission F12.21 Active 817935206 Problem Insomnia, unspecified G47.00 Active 855553542 Problem Prediabetes R73.03 Active 665860406 Problem Primary osteoarthritis of both hips M16.0 Acti ve 889528103 Problem ANGELA (obstructive sleep apnea) G47.33 Active 78 332665 Problem Melena K92.1 Active 2079501 Problem Obesity (BMI 30-39.9) E66.9 Active 140682408 Problem Vitamin D deficiency E55.9 Active 15170867 Problem Anxiety F41.9 Active 68072184 Problem Pyelonephritis, acute N10 Active 61485677 Problem Bladder wall thickening N32.89 Active 84621538 Problem S/P colectomy Z90.49 Active 884416045 Problem 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 Active 28257303 ALLERGIES No Known Allergies ENCOUNTERS from 1955 to 2020-03-11 Encounter Location Date Provider Diagnosis [address] [address] Mar, Jenelle You IMMUNIZATIONS No Information SOCIAL HISTORY Tobacco Use: Social History Observation Description Date Details (start date - stop date) Former Smoker Sex Assigned At : Social History Observation Description Sex Assigned At Unknown Education: Question Answer Notes Level of Education: 10 th grade Audit Question Answer Notes Total Score: 1 Interpretation: Alcohol Education Language: Question Answer Notes Languages spoken: Mohawk Jewish: Question Answer Notes Jewish No anabaptism beliefs that would impact health care. Sexual [...] bedtime as nee ded for 28 day(s) Insurance Providers Payer Name Payer Address Payer Phone Insured Name Patient Relati onship to Insured Coverage Start Date Coverage End Date [facility] [address] [facility] [id number] HUBER COOK self
--- OUTSIDE RECORDS SUMMARY | 2020-05-09 07:16 | CCD ---
Author Author [facility] em[facility] Organization [facility] ems Address Unknown Phone Unavailable Care Team Providers Care Tunnel Man Name Role Phone KenyattaJenelle Unavailable PROBLEMS Type Condition ICD9-CM Code LDY67-PU Code Onset Dates Condition S tatus SNOMED Code Notes Problem Hypocalcemia E83.51 Active 5510698 Problem Cervical myofascial pain syndrome M79.1 Active 857453662 Problem Cannabis dependence, in remission F12.21 Active 468125022 Problem Insomnia, unspecified G47.00 Active 802570242 Problem Prediabetes R73.03 Active 521489492 Problem Primary osteoarthritis of both hips M16.0 Acti ve 856615314 Problem ANGELA (obstructive sleep apnea) G47.33 Active 78 891023 Problem Melena K92.1 Active 1397684 Problem Obesity (BMI 30-39.9) E66.9 Active 740532493 Problem Vitamin D deficiency E55.9 Active 95607747 Problem Anxiety F41.9 Active 36230415 Problem Pyelonephritis, acute N10 Active 36805021 Problem Bladder wall thickening N32.89 Active 17379679 Problem S/P colectomy Z90.49 Active 446644133 Problem 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 Active 56645070 ALLERGIES No Known Allergies ENCOUNTERS from 1955 to 2020-03-14 Encounter Location Date Provider Diagnosis [address] [address] Mar, Jenelle You IMMUNIZATIONS No Information SOCIAL HISTORY Tobacco Use: Social History Observation Description Date Details (start date - stop date) Former Smoker Sex Assigned At : Social History Observation Description Sex Assigned At Unknown Education: Question Answer Notes Level of Education: 10 th grade Audit Question Answer Notes Total Score: 1 Interpretation: Alcohol Education Language: Question Answer Notes Languages spoken: Uzbek Jain: Question Answer Notes Jain No mormonism beliefs that would impact health care. Sexual [...] No Results REASON FOR VISIT Follow up appointment MEDICAL (GENERAL) HISTORY Type Description Date Medical [...] Name:Jenelle Kenyatta, 2020-04-25 01 :00:00 PM, [address] [place], [address], Insurance Providers Payer Name Payer Address Payer Phone Insured Name Patient Relati onship to Insured Coverage Start Date Coverage End Date COUNT INCLUDES [facility] [address] [facility] [phone] HUBER COOK self
--- OUTSIDE RECORDS SUMMARY | 2020-05-09 07:16 | CCD | Continuity of Care Document ---
Author Author Gordy COLE M.D. Organization Unknown Address [address] [facility], [address] [place] [address] Phone [phone] Care Team Providers Care Manager Dialysis Name Role Phone David Santizo MD [facility] [phone] Peter. AMANDA Key. [facility] [phone] Jenelle You DO [facility] [phone] [facility] Records [facility] [phone] [facility] Unavailable Problems Active Problems Provider Date Cervico-occipital neuralgia Jessica Lebron M.D. Onset: 10/16 Cervical spondylosis Jessica Lebron M.D. Onset: 10/16/2016 Lumbar spondylosis Jessica Lebron M.D. Onset: 10/16/2016 Solitary sacroiliitis Jessica Lebron M.D. Onset: 10/16/2016 Obesity Jessica Lebron M.D. Onset: 10/16/2016 Idiopathic progressive polyneuropathy Jessica Lebron M.D. On set: 10/16/2016 Social History Type Date Description Comments Sex Unknown Smokeless Tobacco Never Used Smokeless Tobacco ETOH Use Occasionally consumes alcohol Tobacco Use Start: Unknown End: Unknown Patient is a former smoker Recreational Drug Use Current Drug User MARIJUAN A ONCE A WEEK Allergies, Adverse Reactions, Alerts Description No Known Drug Allergies Medications Active Medications SIG Qnty Indications Ordering Provide r Date Metamucil 48.57% Powder 1 tablespoon by mouth every day after meals ( please give pills if not covered by insurance) 500ml K57.32 Hernesto Cole M.D. 04/19/2020 Fluoxetine HCL 20mg Tablets 2tabs po qd Unknown History Medications Neomycin Sulfate 500mg Tablets 2 by mouth @ 2 & 10p day before surgery, 2 by mouth @ 6am morning of surgery 6tabs Domenic Tripp JR, MD 12/23/2019 - 01/11/2020 Flagyl 500mg Tablets 1 tab by mouth @ 2p & 10p day before surg 1 tab by mouth @ 6am morning of surg 3tabs Domenic Tripp JR, MD 12/23/2019 - 01/11/2020 Immunizations Description No Information Available Vital Signs Date Vital Result Comment 04/19/2020 10:10am BP Systolic 146 mmHg BP Diastolic 80 mmHg Height 70 inches 5'10" Weight 247.00 lb BMI (Body Mass Index) 35.4 kg/m2 [place] Body Weight 166 lb Weight 112.039 kg BSA (Body Surface Area) 2.28 m2 01/17/2020 8:59am BP Systolic 130 mmHg BP Diastolic 82 mmHg Height 70 inches 5'10" Weight 238.00 lb BMI (Body Mass Index) 34.1 kg/m2 [place] Body Weight 166 lb Weight 107.957 kg BSA (Body Surface Area) 2.25 m2 Results Description No Information Available Procedures Date Code Description Status 12/31/2019 72533 Laparoscopy Surgical Colectomy Partial W/Anastomosis W/Coloprocto Completed 12/31/2019 12940 Laparoscopy Surgical Colectomy Partial W/Anastomosis W/Coloprocto Completed Medical Devices Description No Information Available Encounters Type Date Location Provider Dx Diagnosis Office Visit 01/17/2020 8:50a [facility] Domenic martin JR, MD K57.32 Dvtrcli of lg int w/o perforation or abs cess w/o bleeding Z48.815 Encntr for surgical aftcr fo llowing surgery on the dgstv sys Office Visit 01/11/2020 3:30p [facility] Mario doll, MANAGER PUBLIC K57.32 Dvtrcli of lg int w/o perforation or abs cess w/o bleeding Z48.02 Encounter for removal of sut ures Office Visit 12/15/2019 2:00p [facility] Domenic martin JR, MD K57.32 Dvtrcli of lg int w/o perforation or abs cess w/o bleeding Assessments Date Code Description Provider 04/19/2020 K57.32 Diverticulitis of la rge intestine without perforation or abscess without bleeding Hernesto Cole M.D. 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 Domenic Tripp JR, MD 12/31/2019 K57.32 Diverticulitis of la rge intestine without perforation or abscess without bleeding Tru Galaviz MD 12/31/2019 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 Tru Galaviz MD 12/15/2019 K57.32 Diverticulitis of la rge intestine without perforation or abscess without bleeding Domenic Tripp JR, MD Plan of Treatment 04/19/2020 - Hernesto Cole M.D.* K57.32 Diverticulitis of large intestine without perforation or abscess without bleeding * 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 colovesical fistula w/prior diverticu litis Created 04/19/[address] [place] [address] [address] [place] [address] [phone] Domenic Tripp M.D. COLOVESICAL FISTULA Closed [address] [place] [address] [place] [address] [address] [id number] [phone]
--- OUTSIDE RECORDS SUMMARY | 2020-05-09 07:17 | CCD ---
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 Name Role Phone Priscilla Tripp JR, MD Unavailable Unavailable Priscilla Tripp JR, MD Unavailable Unavailable Prsicilla Tripp JR, MD Unavailable Unavailable Priscilla Tripp JR, MD Unavailable Unavailable Priscilla Tripp JR, MD Unavailable Unavailable Priscilla Tripp JR, MD Unavailable Unavailable Priscilla Tripp JR, MD Unavailable Unavailable Priscilla Tripp JR, MD Unavailable Unavailable Priscilla Tripp JR, MD Unavailable Unavailable Priscilla Tripp JR, MD Unavailable Unavailable Priscilla Tripp JR, MD Unavailable Unavailable Priscilla Tripp JR, MD Unavailable Unavailable Priscilla Tripp JR, MD Unavailable Unavailable Priscilla Tripp JR, MD Unavailable Unavailable Priscilla Tripp JR, MD Unavailable Unavailable Priscilla Tripp JR, MD Unavailable Unavailable Priscilla Tripp JR, MD Unavailable Unavailable Priscilla Tripp JR, MD Unavailable Unavailable Priscilla Tripp JR, MD Unavailable Unavailable Priscilla Tripp JR, MD Unavailable Unavailable Priscilla Tripp JR, MD Unavailable Unavailable Priscilla Tripp JR, MD Unavailable Unavailable Priscilla Tripp JR, MD Unavailable Unavailable Priscilla Tripp JR, MD Unavailable Unavailable Priscilla Tripp JR, MD Unavailable Unavailable Priscilla Tripp JR, MD Unavailable Unavailable Priscilla Tripp JR, MD Unavailable Unavailable Priscilla Tripp JR, MD Unavailable Unavailable Priscilla Tripp JR, MD Unavailable Unavailable Priscilla Tripp JR, MD Unavailable Unavailable Priscilla Tripp JR, MD Unavailable Unavailable Priscilla Tripp JR, MD Unavailable Unavailable Priscilla Tripp JR, MD Unavailable Unavailable Priscilla Tripp JR, MD Unavailable Unavailable Priscilla Tripp JR, MD Unavailable Unavailable Priscilla Tripp JR, MD Unavailable Unavailable Priscilla Tripp JR, MD Unavailable Unavailable Priscilla Tripp JR, MD Unavailable Unavailable Priscilla Tripp JR, MD Unavailable Unavailable Priscilla Tripp JR, MD Unavailable Unavailable Priscilla Tripp JR, MD Unavailable Unavailable Priscilla Tripp JR, MD Unavailable Unavailable Priscilla Tripp JR, MD Unavailable Unavailable Priscilla Tripp JR, MD Unavailable Unavailable Priscilla Tripp JR, MD Unavailable Unavailable Priscilla Tripp JR, MD Unavailable Unavailable Priscilla Tripp JR, MD Unavailable Unavailable Priscilla Tripp JR, MD Unavailable Unavailable Priscilla Tripp JR, MD Unavailable Unavailable Priscilla Tripp JR, MD Unavailable Unavailable Priscilla Tripp JR, MD Unavailable Unavailable Priscilla Tripp JR, MD Unavailable Unavailable Priscilla Tripp JR, MD Unavailable Unavailable Prisclila Tripp JR, MD Unavailable Unavailable Priscilla Tripp JR, MD Unavailable Unavailable Priscilla Tripp JR, MD Unavailable Unavailable [place], Deborah Mario Unavailable Unavailable [place], Deborah Mario Unavailable Unavailable [place], Deborah Mario Unavailable Unavailable Ellen, Deborah Mario Unavailable Unavailable Ellen, Deborah Mario Unavailable Unavailable [place], Deborah Mario Unavailable Unavailable Ellen, Deborah Mario Unavailable Unavailable [place], Deborah Mario Unavailable Unavailable Clayton Macias MD Unavailable Unavailable Clayton Macias MD Unavailable Unavailable Clayton Macias MD Unavailable Unavailable Clayton Macias MD Unavailable Unavailable Clayton Macias MD Unavailable Unavailable Fish, B Unruly PATEL Unavailable Unavailable Fish, B Unruly PATEL Unavailable Unavailable Fish, B Unruly PATEL Unavailable Unavailable Fish, B Unruly PATEL Unavailable Unavailable Fish, B Unruly PATEL Unavailable Unavailable Fish, B Unruly PATEL Unavailable Unavailable Fish, B Unruly PATEL Unavailable Unavailable Fish, B Unruly PATEL Unavailable Unavailable Fish, B Unruly PATEL Unavailable Unavailable Fish, B Unruly PATEL Unavailable Unavailable Fish, B Unruly PATEL Unavailable Unavailable Fish, B Unruly PATEL Unavailable Unavailable Fish, B Unruly PATEL Unavailable Unavailable Fish, B Unruly PATEL Unavailable Unavailable Fish, B Unruly PATEL Unavailable Unavailable Fish, B Unruly PATEL Unavailable Unavailable Fish, B Unruly PATEL Unavailable Unavailable Fish, B Unruly PATEL Unavailable Unavailable Fish, B Unruly PATEL Unavailable Unavailable Fish, B Unruly PATEL Unavailable Unavailable Fish, B Unruly PATEL Unavailable Unavailable Fish, B Unruly PATEL Unavailable Unavailable Fish, B Unruly PATEL Unavailable Unavailable Fish, B Unruly PATEL Unavailable Unavailable Fish, B Unruly PATEL Unavailable Unavailable Fish, B Unruly PATEL Unavailable Unavailable Fish, B Unruly PATEL Unavailable Unavailable Fish, B Unruly PATEL Unavailable Unavailable Fish, B Unruly PATEL Unavailable Unavailable Fish, B Unruly PATEL Unavailable Unavailable Fish, B Unruly PATEL Unavailable Unavailable Fish, B Unruly PATEL Unavailable Unavailable Fish, B Unruly PATEL Unavailable Unavailable Fish, B Unruly PATEL Unavailable Unavailable Fish, B Unruly PATEL Unavailable Unavailable Fish, B Unruly PATEL Unavailable Unavailable Fish, B Unruly PATEL Unavailable Unavailable Fish, B Unruly PATEL Unavailable Unavailable Fish, B Unruly PATEL Unavailable Unavailable Fish, B Unruly PATEL Unavailable Unavailable Fish, B Unruly PATEL Unavailable Unavailable Fish, B Unruly PATEL Unavailable Unavailable Fish, B Unruly PATEL Unavailable Unavailable Fish, B Unruly PATEL Unavailable Unavailable Fish, B Unruly PATEL Unavailable Unavailable Fish, B Unruly PATEL Unavailable Unavailable Fish, B Unruly PATEL Unavailable Unavailable Fish, B Unruly PATEL Unavailable Unavailable Fish, B Unruly PATEL Unavailable Unavailable Fish, B Unruly PATEL Unavailable Unavailable Fish, B Unruly PATEL Unavailable Unavailable Fish, B Unruly PATEL Unavailable Unavailable Fish, B Unruly PATEL Unavailable Unavailable Fish, B Unruly PATEL Unavailable Unavailable Fish, B Unruly PATEL Unavailable Unavailable Fish, B Unruly PATEL Unavailable Unavailable Fish, B Unruly PATEL Unavailable Unavailable Fish, B Unruly PATEL Unavailable Unavailable Fish, B Unruly PATEL Unavailable Unavailable Fish, B Unruly PATEL Unavailable Unavailable Fish, B Unruly PATEL Unavailable Unavailable Fish, B Unruly PATEL Unavailable Unavailable Fish, B Unruly MD Unavailable Unavailable Fish, B Unruly MD Unavailable Unavailable Fish, B Unruly MD Unavailable Unavailable Fish, B Unruly MD Unavailable Unavailable Fish, B Unruly MD Unavailable Unavailable Fish, B Unruly MD Unavailable Unavailable Fish, B Unruly MD Unavailable Unavailable Fish, B Unruly MD Unavailable Unavailable Fish, B Unruly MD Unavailable Unavailable Fish, B Unruly MD Unavailable Unavailable Fish, B Unruly MD Unavailable Unavailable Fish, B Unruly MD Unavailable Unavailable Fish, B Unruly MD Unavailable Unavailable Fish, B Unruly MD Unavailable Unavailable Fish, B Unruly MD Unavailable Unavailable Fish, B Unruly MD Unavailable Unavailable Fish, B Unruly MD Unavailable Unavailable Fish, B Unruly MD Unavailable Unavailable Fish, B Unruly MD Unavailable Unavailable Fish, B Unruly MD Unavailable Unavailable Fish, B Unruly MD Unavailable Unavailable Fish, B Unruly MD Unavailable Unavailable Fish, B Unruly MD Unavailable Unavailable Fish, B Unruly MD Unavailable Unavailable Fish, B Unruly MD Unavailable Unavailable Fish, B Unruly MD Unavailable Unavailable Fish, B Unruly MD Unavailable Unavailable Fish, B Unruly MD Unavailable Unavailable Fish, B Unruly MD Unavailable Unavailable Fish, B Unruly MD Unavailable Unavailable Fish, B Unruly MD Unavailable Unavailable Fish, B Unruly MD Unavailable Unavailable Fish, B Unruly MD Unavailable Unavailable Fish, B Unruly MD Unavailable Unavailable Fish, B Unruly MD Unavailable Unavailable Fish, B Unruly MD Unavailable Unavailable Fish, B Unruly MD Unavailable Unavailable Fish, B Unruly MD Unavailable Unavailable Fish, B Unrluy MD Unavailable Unavailable Re-disclosure Warning The records that you are about to access may contain information from federally-assisted alcohol or drug abuse programs. If such information is present, then the following federally mandated warning applies: This information has been disclosed to you from records protected by federal confidentiality rules (42 CFR part 2). The federal rules prohibit you from making any further disclosure of this information unless further disclosure is expressly permitted by the written consent of the person to whom it pertains or as otherwise permitted by 42 CFR part 2. A general authorization for the release of medical or other information is NOT sufficient for this purpose. The Federal rules restrict any use of the information to criminally investigate or prosecute any alcohol or drug abuse patient.The records that you are about to access may contain highly sensitive health information, the redisclosure of which is protected by Article 27-F of the [facility] Public Health law. If you continue you may have access to information: Regarding HIV / AIDS; Provided by facilities licensed or operated by the [facility] Office of Mental Health; or Provided by the [facility] Office for People With Developmental Disabilities. If such information is present, then the following [facility] mandated warning applies: This information has been disclosed to you from confidential records which are protected by state law. State law prohibits you from making any further disclosure of this information without the specific written consent of the person to whom it pertains, or as otherwise permitted by law. Any unauthorized further disclosure in violation of state law may result in a fine or shelter sentence or both. A general authorization for the release of medical or other information is NOT sufficient authorization for further disc losure. Family History Family Member Name Family Member Gender Family Member Status Date o f Status Description Data Source(s) Unknown Unknown Problem [facility] ([facility]) Unknown Male Problem MEDENT ([facility]) Unknown Female Problem [facility] ([facility]) Unknown Female Problem [facility] ([facility]) Encounters Encounter Providers Location Date Indications Data Source(s ) Unknown [address] [facility] [place] [address] 03/23/2020 12:00:00 AM EST [facility]CW1 ([facility]) Unknown [address] [facility] [place] [address] 03/14/2020 12:00:00 AM EST eCW1 ([facility]) Unknown [address] [facility] [place] [address] 03/14/2020 12:00:00 AM EST eCW1 ([facility]) Unknown [address] [facility] [place] [address] 03/10/2020 12:00:00 AM EST eCW1 ([facility]) Unknown [address] [facility] [place] [address] 03/10/2020 12:00:00 AM EST eCW1 ([facility]) Unknown [address] [facility] [place] [address] 02/11/2020 12:00:00 AM EST [facility] Unknown [address] [facility] [place] [address] 02/07/2020 12:00:00 AM EST eCW1 ([facility]) Outpatient [address] [facility] [address] 01/25/2020 12:00:00 AM EDT eCW1 ([facility]) Office Visit Attender: Domenic Phillip/Sparks/Zi/Rein dl 01/17/2020 08:50:00 AM EDT [facility] ([facility]) Office Visit Attender: Mario Phillip/Sparks/Zi/Reindl 01/11/2020 03:30:00 PM EDT [facility] ([facility]) Unknown [address] [facility] [address] 01/07/2020 12:00:00 AM EDT eCW1 ([facility]) Outpatient Attender: Domenic Phillip/Sparks/Zi/Rein dl 12/15/2019 02:00:00 PM EDT [facility] ([facility] [place]patient [address] [facility] [address] 10/22/2019 12:00:00 AM EDT eCW1 ([facility]) Outpatient [address] [facility] [address] 10/20/2019 12:00:00 AM EDT eCW1 ([facility]) Outpatient Referrer: Unruly Macias MD 06/24/2019 07:16:00 AM EDT [facility] Outpatient Referrer: Unruly Macias MD 06/24/2019 07:15:00 AM EDT [facility] Outpatient Referrer: Unruly Macias MD 06/24/2019 07:15:00 AM EDT [facility] Outpatient Referrer: Unruly Macias MD 06/22/2019 11:42:00 AM EDT [facility] Outpatient Attender: Unruly Macias MD Physical Therapy 06/18/2019 0 9:00:00 AM EDT MEDENT ([facility]) [facility] [address] [place] [address] 06/11/2019 12:00:00 AM EST eCW1 ([facility]) Medications Medication Brand Name Start Date Product Form Dose Route Admi nistrative Instructions Pharmacy Instructions Status Indications Reaction Description Data Source(s) Psyllium 14.2 MG/ML Oral Suspension [Metamucil] Metamucil 04/19/2020 12:00:00 AM EST ORAL active MEDENT ([facility], ) Trazodone Hydrochloride 50 MG Oral Tablet Trazodone HC l 50 MG Trazodone HCl 50 MG 01/25/2020 12:00:00 AM EDT 1.0 {tablet_at_bedtime_as_needed} active Trazodone HCl 50 MG eCW1 ([facility]) Trazodone Hydrochloride 50 MG Oral Tablet Trazodone HC l 50 MG Trazodone HCl 50 MG 01/25/2020 12:00:00 AM EDT 1.0 {tablet_at_bedtime_as_needed} active Trazodone HCl 50 MG eCW1 ([facility]) Trazodone Hydrochloride 50 MG Oral Tablet Trazodone HC l 50 MG Trazodone HCl 50 MG 01/25/2020 12:00:00 AM EDT 1.0 {tablet_at_bedtime_as_needed} active Trazodone HCl 50 MG eCW1 ([facility]) Trazodone Hydrochloride 50 MG Oral Tablet Trazodone HC l 50 MG Trazodone HCl 50 MG 01/25/2020 12:00:00 AM EDT 1.0 {tablet_at_bedtime_as_needed} active Trazodone HCl 50 MG eCW1 ([facility]) Trazodone Hydrochloride 50 MG Oral Tablet Trazodone HC l 50 MG Trazodone HCl 50 MG 01/25/2020 12:00:00 AM EDT 1.0 {tablet_at_bedtime_as_needed} active Trazodone HCl 50 MG eCW1 ([facility]) Trazodone Hydrochloride 50 MG Oral Tablet Trazodone HC l 50 MG Trazodone HCl 50 MG 01/25/2020 12:00:00 AM EDT 1.0 {tablet_at_bedtime_as_needed} active Trazodone HCl 50 MG eCW1 ([facility]) Trazodone Hydrochloride 50 MG Oral Tablet Trazodone HC l 50 MG Trazodone HCl 50 MG 01/25/2020 12:00:00 AM EDT 1.0 {tablet_at_bedtime_as_needed} active Trazodone HCl 50 MG eCW1 ([facility]) Trazodone Hydrochloride 50 MG Oral Tablet Trazodone HC l 50 MG Trazodone HCl 50 MG 01/25/2020 12:00:00 AM EDT 1.0 {tablet_at_bedtime_as_needed} active Trazodone HCl 50 MG eCW1 ([facility]) Metronidazole 500 MG Oral Tablet [Flagyl] Flagyl 12/23/2019 12:00 :00 AM EDT ORAL completed [facility] ([facility], ) Neomycin Sulfate 500 MG Oral Tablet Neomycin Sulfate 12/23/2019 12:00:00 AM EDT ORAL completed MEDENT ([facility], ) Ciprofloxacin 500 MG Oral Tablet Ciprofloxacin HCl 500 MG Ciprofloxacin HCl 500 MG 10/15/2019 12:00:00 AM EDT suspended Ciprofloxacin HCl 500 MG eCW1 ([facility]) Ciprofloxacin 500 MG Oral Tablet Ciprofloxacin HCl 500 MG Ciprofloxacin HCl 500 MG 10/15/2019 12:00:00 AM EDT suspended Ciprofloxacin HCl 500 MG eCW1 ([facility]) Ciprofloxacin 500 MG Oral Tablet Ciprofloxacin HCl 500 MG Ciprofloxacin HCl 500 MG 10/15/2019 12:00:00 AM EDT suspended Ciprofloxacin HCl 500 MG eCW1 ([facility]) Ciprofloxacin 500 MG Oral Tablet Ciprofloxacin HCl 500 MG Ciprofloxacin HCl 500 MG 10/15/2019 12:00:00 AM EDT suspended Ciprofloxacin HCl 500 MG eCW1 ([facility]) Ciprofloxacin 500 MG Oral Tablet Ciprofloxacin HCl 500 MG Ciprofloxacin HCl 500 MG 10/15/2019 12:00:00 AM EDT suspended Ciprofloxacin HCl 500 MG eCW1 ([facility]) Ciprofloxacin 500 MG Oral Tablet Ciprofloxacin HCl 500 MG Ciprofloxacin HCl 500 MG 10/15/2019 12:00:00 AM EDT suspended Ciprofloxacin HCl 500 MG eCW1 ([facility]) Ciprofloxacin 500 MG Oral Tablet Ciprofloxacin HCl 500 MG Ciprofloxacin HCl 500 MG 10/15/2019 12:00:00 AM EDT suspended Ciprofloxacin HCl 500 MG eCW1 ([facility]) Ciprofloxacin 500 MG Oral Tablet Ciprofloxacin HCl 500 MG Ciprofloxacin HCl 500 MG 10/15/2019 12:00:00 AM EDT active Ciprofloxacin HCl 500 MG eCW1 ([facility]) Ciprofloxacin 500 MG Oral Tablet Ciprofloxacin HCl 500 MG Ciprofloxacin HCl 500 MG 10/15/2019 12:00:00 AM EDT suspended Ciprofloxacin HCl 500 MG eCW1 ([facility]) Ciprofloxacin 500 MG Oral Tablet Ciprofloxacin HCl 500 MG Ciprofloxacin HCl 500 MG 10/15/2019 12:00:00 AM EDT active Ciprofloxacin HCl 500 MG eCW1 ([facility]) Ciprofloxacin 500 MG Oral Tablet Ciprofloxacin HCl 500 MG Ciprofloxacin HCl 500 MG 10/15/2019 12:00:00 AM EDT active Ciprofloxacin HCl 500 MG eCW1 ([facility]) Insurance Providers Payer name Policy type / Coverage type Policy ID Covered green party ID Covered green party's relationship to de la vega Policy [place] Plan Information [facility] [id number] SP [id number] [facility] [id number] SP [id number] [facility] O [id number] S [id number] ANS-Medicaid [id number] [facility] [id number] SP [id number] ANSI-Medicaid [id number] ANSI-Medicaid [id number] ANSI-Medicaid [id number] ANSI-Medicaid [id number] [facility] Health Maintenance Organization (HMO) [id number] Self [id number] [facility] Health Maintenance Organization (HMO) [id number] Self [id number] [facility] Community Plan Commercial [id number] Self [id number] [facility] Community Plan Commercial [id number] Self [id number] [facility] [id number] SP [id number] [facility] PLAN [facility] [id number] SP [id number] [facility] Medicaid Medicaid Self [id number] Problems, Conditions, and Diagnoses Code Display Name Description Problem Type Effective Dates Data Source(s) E55.9 [id number] Vitamin D deficiency Problem 03/10/2020 12:0 0:00 AM EST eCW1 ([facility]) N32.1 [id number] Colovesical fistula Problem 01/25/2020 12:00 :00 AM EDT eCW1 ([facility]) Z90.49 [id number] S/P colectomy Problem 01/25/2020 12:00:00 AM EDT eCW1 ([facility]) K92.1 [id number] Melena Problem 01/25/2020 12:00:00 AM ED T eCW1 ([facility]) N10 [id number] Pyelonephritis, acute Problem 01/16/2020 12: 00:00 AM EDT eCW1 ([facility]) N32.89 Disorder of urinary bladder Bladder wall thickening Pr oblem 10/15/2019 12:00:00 AM EDT eCW1 ([facility]) Surgeries/Procedures Procedure Description Date Indications Data Source(s) Laparoscopy Surgical Colectomy Partial W/Anastomosis W/Colop rocto 12/31/2019 12:00:00 AM EDT MED[facility] ([facility]) Laparoscopy Surgical Colectomy Partial W/Anastomosis W/Colop rocto 12/31/2019 12:00:00 AM EDT [facility] ([facility]) X-Ray Hips Bilateral With Pelvis Minimum 5 Views 06/17 12:00:00 AM EDT MEDENT ([facility]) Results ID Date Data Source [id number] 05/04/2020 09:45:00 AM EST [facility] Name Value Range Interpretation Code Description Data Anna rce(s) Supporting Document(s) SARS coronavirus 2 RNA Not Detected [facility] [place] This lab was ordered by [facility] and reported by [facility]. ID Date Data Source [id number] 12/26/2019 10:00:00 AM EDT [facility] Name Value Range Interpretation Code Description Data Anna rce(s) Supporting Document(s) SARS coronavirus 2 RNA [facility] This lab was ordered by [facility] and reported by [facility]. ID Date Data Source [id number] 06/23/2019 12:00:00 AM EDT [facility] Unruly Macias MD Patient Name: BARBY COOK1 [facility] 1955[facility] [place] [address] Date of Exam: 06/23/2019#: Fax: [phone] EXAM: ARTHROCENTESIS LTHIP-ASPIR / INJ STEROID/PAIN MEDSCLINICAL INFORMATION: Unilateral primary osteoarthritis of the left hip.The procedure was performed by Trinidad Juan [facility], under the directsupervision of Dr. Davis.The benefits and risks including but not limited to pain, infection,bleeding and anaphylaxis were explained to the patient as well as thepotential therapeutic benefits of the procedure and the possibility of anunsuccessful procedure, and an informed consent was obtained. Directlyprior to the start of the procedure, a formal time-out was completed.The left femoral neck joint space was localized using fluoroscopicguidance. The skin was prepped and draped in a sterile fashion.Approximately 5 cc of 1% Lidocaine 10 mg/ml was used as a local anesthetic. Using fluoroscopic guidance, a #22 gauge spinal needle was inserted andadvanced into the left femoral neck joint space. Approximately 1 cc ofOmnipaque 300 mg/ml was injected to verify placement. A 6 cc solutioncontaining 5 cc of 1% Lidocaine 10 mg/ml and 1 cc of Kenalog 40 mg/ml wasinjected into the joint space. The needle was then removed.The patient tolerated the procedure well and there were no immediatecomplications.Fluoroscopic images are performed with last image hold technology. Theseimages require no additional radiation to acquire.Fluoroscopy time was 11 seconds at 3 pulses/second. This is equal to 2.75seconds continuous fluoroscopy time which is a 75% reduction in radiation.Dictated by Trinidad Juan, SHARI, with Dr. Davis.LARS Conteh/Cristofer you for referring HUBER COOK to our office. Electronically Signed - DAMION DAVIS DO 06/23/19 15:20 Name Value Range Interpretation Code Description Data Anna rce(s) Supporting Document(s) ID Date Data Source [id number] 06/23/2019 12:00:00 AM EDT [facility] Unruly Macias MD Patient Name: HUBER [id number] [facility] 1955[facility] [place] [address] Date of Exam: 06/23/2019#: Fax: [phone] EXAM: ARTHROCENTESIS LTHIP-ASPIR / INJ STEROID/PAIN MEDSCLINICAL INFORMATION: Unilateral primary osteoarthritis of the left hip.The procedure was performed by SHARI Ibarra, under the directsupervision of Dr. Davis.The benefits and risks including but not limited to pain, infection,bleeding and anaphylaxis were explained to the patient as well as thepotential therapeutic benefits of the procedure and the possibility of anunsuccessful procedure, and an informed consent was obtained. Directlyprior to the start of the procedure, a formal time-out was completed.The left femoral neck joint space was localized using fluoroscopicguidance. The skin was prepped and draped in a sterile fashion.Approximately 5 cc of 1% Lidocaine 10 mg/ml was used as a local anesthetic. Using fluoroscopic guidance, a #22 gauge spinal needle was inserted andadvanced into the left femoral neck joint space. Approximately 1 cc ofOmnipaque 300 mg/ml was injected to verify placement. A 6 cc solutioncontaining 5 cc of 1% Lidocaine 10 mg/ml and 1 cc of Kenalog 40 mg/ml wasinjected into the joint space. The needle was then removed.The patient tolerated the procedure well and there were no immediatecomplications.Fluoroscopic images are performed with last image hold technology. Theseimages require no additional radiation to acquire.Fluoroscopy time was 11 seconds at 3 pulses/second. This is equal to 2.75seconds continuous fluoroscopy time which is a 75% reduction in radiation.Dictated by SHARI Ibarra, with Dr. Davis.LARS Conteh/Cristofer you for referring HUBER COOK to our office. Electronically Signed - DAMION DAVIS DO 06/23/19 15:20 Name Value Range Interpretation Code Description Data Anna rce(s) Supporting Document(s) ID Date Data Source LIPID PANEL (CARDIAC RISK) 06/17/2019 12:00:00 AM EDT eCW1 ( [facility]) Name Value Range Interpretation Code Description Data Anna rce(s) Supporting Document(s) Cholesterol in HDL [Moles/volume] in Serum or Plasma 50 >40 HDL CHOLESTEROL eCW1 ([facility]) Cholesterol [Moles/volume] in Serum or Plasma 186 <200 CHOLESTEROL LEVEL eCW1 ([facility]) Cholesterol in LDL [Mass/volume] in Serum or Plasma by calculation 114 <100 LDL CHOLESTEROL eCW1 ([facility]) Triglyceride [Mass/volume] in Serum or Plasma by calculation 111 <150 TRIGLYCERIDES LEVEL eCW1 ([facility]) 136 NON-HDL-C eCW1 ([facility]) 3.720 <5 CHOLESTEROL RISK RATIO eCW1 ([facility]) ID Date Data Source [id number] 06/17/2019 12:00:00 AM EDT eCW1 ([facility]) Name Value Range Interpretation Code Description Data Anna rce(s) Supporting Document(s) Hemoglobin A1c/Hemoglobin.total in Blood 6.1 HEMOGLOBIN A1c eCW1 ([facility]) Procedure Social History Code Duration Value Status Description Data Source(s ) Smoking 03/10/2020 12:00:00 AM EST Former Smoker completed Former Smoker eCW1 ([facility]) Smoking 03/10/2020 12:00:00 AM EST Former Smoker completed Former Smoker eCW1 ([facility]) Smoking 03/10/2020 12:00:00 AM EST Former Smoker completed Former Smoker eCW1 ([facility]) Smoking 03/10/2020 12:00:00 AM EST Former Smoker completed Former Smoker eCW1 ([facility]) Smoking 03/10/2020 12:00:00 AM EST Former Smoker completed Former Smoker eCW1 ([facility]) Smoking 01/25/2020 12:00:00 AM EDT Former Smoker completed Former Smoker eCW1 ([facility]) Smoking 01/25/2020 12:00:00 AM EDT Former Smoker completed Former Smoker eCW1 ([facility]) Smoking 01/25/2020 12:00:00 AM EDT Former Smoker completed Former Smoker eCW1 ([facility]) Smoking 10/22/2019 12:00:00 AM EDT Former Smoker completed Former Smoker eCW1 ([facility]) Smoking 10/22/2019 12:00:00 AM EDT Former Smoker completed Former Smoker eCW1 ([facility]) Smoking 10/22/2019 12:00:00 AM EDT Former Smoker completed Former Smoker eCW1 ([facility]) Vital Signs ID Date Data Source UNK Name Value Range Interpretation Code Description Data Source(s) Body surface area Derived from formula 2.28 m2 2.28 m2 [facility] ([facility]) Body weight 112.039 kg 112.039 kg [facility] ([facility]) [place] body weight 166 [lb_av] 166 [lb_av] MED[facility] T ([facility]) Body mass index (BMI) [Ratio] 35.4 kg/m2 35.4 k g/m2 [facility] ([facility]) Body weight 247.00 [lb_av] 247.00 [lb_av] [facility] T ([facility]) Body height 70 [in_i] 70 [in_i] [facility] ([facility]) 5'10" Diastolic blood pressure 80 mm[Hg] 80 mm[Hg] [facility] ([facility]) Systolic blood pressure 146 mm[Hg] 146 [facility] Diastolic blood pressure 76 mm[Hg] 76 mm[Hg] eCW1 ([facility]) Systolic blood pressure 124 mm[Hg] 124 mm[Hg] e CW1 ([facility]) Body temperature 98.1 [degF] 98.1 [degF] eCW1 ( [facility]) Respiratory rate 18 /min 18 /min eCW1 ([facility]) Heart rate 76 /min 76 /min eCW1 ([facility] Body mass index (BMI) [Ratio] 32.91 kg/m2 32.91 kg/m2 [facility] ([facility]) Body height 71 [in_i] 71 [in_i] eCW1 ([facility]) Body weight 236 [lb_av] 236 [lb_av] eCW1 ([facility]) Body surface area Derived from formula 2.25 m2 2.25 m2 [facility] ([facility]) Body weight 107.957 kg 107.957 kg [facility] ([facility]) [place] body weight 166 [lb_av] 166 [lb_av] MEDEN T ([facility]) Body mass index (BMI) [Ratio] 34.1 kg/m2 34.1 k g/m2 [facility] ([facility]) Body weight 238.00 [lb_av] 238.00 [lb_av] [facility] T ([facility]) Body height 70 [in_i] 70 [facility] 5'10" Diastolic blood pressure 82 mm[Hg] 82 mm[Hg] [facility] ([facility]) Systolic blood pressure 130 mm[Hg] 130 [facility] Body weight 107.050 kg 107.050 kg [facility] ([facility]) [place] body weight 166 [lb_av] 166 [lb_av] [facility] T ([facility]) Body mass index (BMI) [Ratio] 33.9 kg/m2 33.9 k g/m2 [facility] ([facility]) Body weight 236.00 [lb_av] 236.00 [lb_av] [facility] T ([facility]) Body height 70 [in_i] 70 [facility]_i] [facility] 5'10" Diastolic blood pressure 80 mm[Hg] 80 mm[Hg] [facility] ([facility]) Systolic blood pressure 144 mm[Hg] 144 mm[Hg] M EDENT ([facility]) Body weight 108.410 kg 108.410 kg [facility] ([facility]) Body mass index (BMI) [Ratio] 34.3 kg/m2 34.3 k g/m2 [facility] ([facility]) Body weight 239.00 [lb_av] 239.00 [lb_av] MED[facility] T ([facility]) Body height 70 [in_i] 70 [in_i] [facility] ([facility], ) 5'10" Diastolic blood pressure 82 mm[Hg] 82 mm[Hg] [facility] ([facility], ) Systolic blood pressure 129 mm[Hg] 129 mm[Hg] M EDENT ([facility], ) Diastolic blood pressure mm[Hg] eCW1 ([facility]) Systolic blood pressure 138 mm[Hg] 138 mm[Hg] e CW1 ([facility]) Body temperature 97.4 [degF] 97.4 [degF] eCW1 ( [facility]) Respiratory rate 18 /min 18 /min eCW1 ([facility]) Heart rate 76 /min 76 /min eCW1 ([facility]) Body mass index (BMI) [Ratio] 33.47 kg/m2 33.47 kg/m2 eCW1 ([facility]) Body height 71 [in_i] 71 [in_i] eCW1 ([facility]) Body weight 240 [lb_av] 240 [lb_av] eCW1 ([facility]) Diastolic blood pressure 70 mm[Hg] 70 mm[Hg] eCW1 ([facility]) Systolic blood pressure 130 mm[Hg] 130 mm[Hg] e CW1 ([facility]) Body temperature 97 [degF] 97 [degF] eCW1 ([facility]) Respiratory rate 20 /min 20 /min eCW1 ([facility]) Heart rate 70 /min 70 /min eCW1 ([facility]) Body mass index (BMI) [Ratio] 33.47 kg/m2 33.47 kg/m2 eCW1 ([facility]) Body height 71 [in_i] 71 [in_i] eCW1 ([facility]) Body weight 240 [lb_av] 240 [lb_av] eCW1 ([facility]) Body mass index (BMI) [Ratio] 36.3 kg/m2 36.3 k g/m2 [facility] ([facility]) Body weight 246.12 [lb_av] 246.12 [lb_av] MEDEN T ([facility]) Body height 69 [in_i] 69 [in_i] [facility] ([facility]) 5'9" Body temperature 97.4 [degF] 97.4 [degF] [facility] ([facility]) Diastolic blood pressure 72 mm[Hg] 72 mm[Hg] eCW1 ([facility]) Systolic blood pressure 116 mm[Hg] 116 mm[Hg] e CW1 ([facility]) Body temperature 97.9 [degF] 97.9 [degF] eCW1 ( [facility]) Respiratory rate 18 /min 18 /min eCW1 ([facility]) Heart rate 82 /min 82 /min eCW1 ([facility]) Body mass index (BMI) [Ratio] 34.86 kg/m2 34.86 kg/m2 eCW1 ([facility]) Body height 71 [in_us] 71 [in_us] eCW1 ([facility]) Body weight Measured 250.0 [lb_av] 250.0 [lb_av ] eCW1 ([facility]) Patient Treatment Plan of Care Planned Activity Planned Date Details Description Data Source (s) Trazodone Hydrochloride 50 MG Oral Tablet 01/25/2020 12:00:00 AM ED T eCW1 ([facility]) Trazodone Hydrochloride 50 MG Oral Tablet 01/25/2020 12:00:00 AM ED T eCW1 ([facility]) Trazodone Hydrochloride 50 MG Oral Tablet 01/25/2020 12:00:00 AM ED T eCW1 ([facility]) Trazodone Hydrochloride 50 MG Oral Tablet 01/25/2020 12:00:00 AM ED T eCW1 ([facility]) Trazodone Hydrochloride 50 MG Oral Tablet 01/25/2020 12:00:00 AM ED T eCW1 ([facility]) Trazodone Hydrochloride 50 MG Oral Tablet 01/25/2020 12:00:00 AM ED T eCW1 ([facility]) Trazodone Hydrochloride 50 MG Oral Tablet 01/25/2020 12:00:00 AM ED T eCW1 ([facility]) Trazodone Hydrochloride 50 MG Oral Tablet 01/25/2020 12:00:00 AM ED T eCW1 ([facility])
[2020-05-09] MEDS ORDERED: LIDOCAINE 2% 100MG/5ML SDV (FOR ANES.) As Ordered ONE (07:30)
[2020-05-09] MEDS ORDERED: propofoL 200 MG/20 ML VIAL As Ordered ONE (07:30)
[2020-05-09 08:45] VITALS: BP 130/80
--- NOTE | 2020-05-09 09:14 | ROOR ---
Patient Name: Gordy Valle Procedure Date: 05/09/2020 8:03 AM Date of : 1955 Age: 65 Room: [facility] Gender: Male Note Status: Finalized Procedure: Colonoscopy Indications: Abnormal CT of the GI tract, Follow-up of diverticulitis Providers: Hernesto Cadena MD Referring MD: LIAM BLUE Radha CTR LIAM Alvarez Requesting Provider: Medicines: Monitored Anesthesia Care Complications: No immediate complications. Procedure: Pre-Anesthesia Assessment: - Prior to the procedure, a History and Physical was performed, and patient medications and allergies were reviewed. The patient is competent. The risks and benefits of the procedure and the sedation options and risks were discussed with the patient. All questions were answered and informed consent was obtained. Patient identification and proposed procedure were verified by the physician, the nurse and the anesthesiologist in the procedure room. Mental Status Examination: alert and oriented. Airway Examination: normal oropharyngeal airway and neck mobility. Respiratory Examination: clear to auscultation. CV Examination: normal. Prophylactic Antibiotics: The patient does not require prophylactic antibiotics. Prior Anticoagulants: The patient has taken no previous anticoagulant or antiplatelet agents. ASA Grade Assessment: II - A patient with mild systemic disease. After reviewing the risks and benefits, the patient was deemed in satisfactory condition to undergo the procedure. The anesthesia plan was to use monitored anesthesia care (MAC). Immediately prior to administration of medications, the patient was re-assessed for adequacy to receive sedatives. The heart rate, respiratory rate, oxygen saturations, blood pressure, adequacy of pulmonary ventilation, and response to care were monitored throughout the procedure. The physical status of the patient was re-assessed after the procedure. The Colonoscope was introduced through the anus and advanced to the terminal ileum, with identification of the appendiceal orifice and IC valve. The colonoscopy was performed without difficulty. The patient tolerated the procedure well. The quality of the bowel preparation was good. The terminal ileum, ileocecal valve, appendiceal orifice, and rectum were photographed. Scope insertion time was 2 minutes. Scope withdrawal time was 8 minutes. The total duration of the procedure was 10 minutes. Findings: The perianal and digital rectal examinations were normal. The terminal ileum appeared normal. There was evidence of a prior end-to-end colo-colonic anastomosis in the sigmoid colon. This was patent and was characterized by healthy appearing mucosa and an intact staple line. The anastomosis was traversed. Two sessile polyps were found in the rectum. The polyps were 2 to 3 mm in size. These polyps were removed with a jumbo cold forceps. Resection and retrieval were complete. Verification of patient identification for the specimen was done by the physician and nurse using the patient's name, date and medical record number. Estimated blood loss was minimal. Non-bleeding external and internal hemorrhoids were found during retroflexion. The hemorrhoids were medium-sized. Impression: - The examined portion of the ileum was normal. - Patent end-to-end colo-colonic anastomosis, characterized by healthy appearing mucosa and an intact staple line. - Two 2 to 3 mm polyps in the rectum, removed with a jumbo cold forceps. Resected and retrieved. - Non-bleeding external and internal hemorrhoids. Recommendation: - Patient has a contact number available for emergencies. The signs and symptoms of potential delayed complications were discussed with the patient. Return to normal activities tomorrow. Written discharge instructions were provided to the patient. - High fiber diet. - Continue present medications. - Use fiber, for example Citrucel, Fibercon, Konsyl or Metamucil. - Await pathology results. - Repeat colonoscopy in 5-10 years for surveillance based on pathology results. - Telephone GI clinic for pathology results in 2 weeks. - Return to primary care physician. Procedure Code(s): --- Professional --- 83801, Colonoscopy, flexible; with biopsy, single or multiple Diagnosis Code(s): --- Professional --- K64.8, Other hemorrhoids Z98.0, Intestinal bypass and anastomosis status K62.1, Rectal polyp K57.32, Diverticulitis of large intestine without perforation or abscess without bleeding R93.3, Abnormal findings on diagnostic imaging of other parts of digestive tract CPT copyright 2019 [employer]. All rights reserved. The codes documented in this report are preliminary and upon senior health educator review may be revised to meet current compliance requirements. Hernesto Cadena MD Hernesto Cadena MD 05/09/2020 9:14:14 AM Electronically signed by Hernesto Cadena MD Number of Addenda: 0 Note Initiated On: 05/09/2020 8:03 AM Estimated Blood Loss: Estimated blood loss was minimal.
== END 2020-05-09 09:18 | disposition home or self-care (01) ==
LOC: M OPP 07:10
PROVIDERS: ATTEND Internal Medicine Gastroenterology
DX: R93.3 Abnormal findings on diagnostic imaging of other parts of digestive tract (principal); K57.32 Diverticulitis of large intestine without perforation or abscess without bleeding; K62.1 Rectal polyp; K64.8 Other hemorrhoids; Z98.0 Intestinal bypass and anastomosis status; F41.9 Anxiety disorder, unspecified; F32.9 Major depressive disorder, single episode, unspecified; M48.00 Spinal stenosis, site unspecified; M19.90 Unspecified osteoarthritis, unspecified site; Z79.899 Other long term (current) drug therapy; Z96.641 Presence of right artificial hip joint; Z83.3 Family history of diabetes mellitus; Z82.3 Family history of stroke

== ENCOUNTER → 2020-06-13 | Outpatient (REF) | payer OTHER ==
[~2020-06-13] MED LIST changes: -NS 1,000 ML IV ONE; -SIMETHICONE 40MG/0.6ML DROPS 30ML As Ordered ONE
== END ==
LOC: M SFHCPLAZ 14:58
PROVIDERS: ATTEND Family Medicine
DX: E78.5 Hyperlipidemia, unspecified (principal); R73.03 Prediabetes

== ENCOUNTER → 2022-05-10 | Outpatient (CLI) | payer MEDICARE, OTHER ==
[2022-05-10 07:40] LABS: HEMATOCRIT 42.4 % (42.0-52.0); HEMOGLOBIN 14.1 g/dl (13.5-17.5); MEAN CORPUSCULAR HEMOGLOBIN 31.1 pg (27.0-33.0); MEAN CORPUSCULAR HGB CONC 33.3 g/dl (32.0-36.5); MEAN CORPUSCULAR VOLUME 93.4 fl (80.0-96.0); PLATELET COUNT, AUTOMATED 168 10^3/uL (150-450); RED BLOOD COUNT 4.54 10^6/uL (4.30-6.10); WHITE BLOOD COUNT 5.5 10^3/uL (4.0-10.0)
[2022-05-10 07:57] LABS: HEMOGLOBIN A1c 5.6 % (4.0-6.0)
[2022-05-10 08:04] LABS: ALBUMIN 3.5 G/DL (3.2-5.2); ALKALINE PHOSPHATASE 63 U/L (46-116); ALT/SGPT 15 U/L (7.0-40); AST/SGOT 19 U/L (<34); BILIRUBIN,TOTAL 0.5 MG/DL (0.3-1.2); BLOOD UREA NITROGEN 13 MG/DL (9-23); CALCIUM LEVEL 8.5 MG/DL (8.3-10.6); CARBON DIOXIDE LEVEL 29 MMOL/L (20-31); CHLORIDE LEVEL 108 MMOL/L (98-107); CHOLESTEROL LEVEL 175 MG/DL (<200); CREATININE FOR GFR 0.89 MG/DL (0.70-1.30); GLOMERULAR FILTRATION RATE > 60.0 (>49); GLUCOSE, FASTING 95 MG/DL (74-106); LDL CHOLESTEROL 100.8 MG/DL (<100); NON-HDL-C 122 MG/DL; POTASSIUM SERUM 4.4 MMOL/L (3.5-5.1); SODIUM LEVEL 143 MMOL/L (136-145); TOTAL PROTEIN 6.2 G/DL (5.7-8.2); TRIGLYCERIDES LEVEL 106 MG/DL (<150)
[2022-05-10 08:07] LABS: FOLATE 20.81 NG/ML (>5.4)
[2022-05-10 08:32] LABS: HIV 1&2 SCREEN CENTAUR NEGATIVE (NEGATIVE)
== END ==
LOC: M LAB 06:30
PROVIDERS: ATTEND Student in an Organized Health Care Education/Training Program
DX: R73.03 Prediabetes (principal); E78.5 Hyperlipidemia, unspecified; Z11.4 Encounter for screening for human immunodeficiency virus [HIV]; F10.11 Alcohol abuse, in remission; Z87.891 Personal history of nicotine dependence

== ENCOUNTER → 2022-05-13 | Outpatient (CLI) | payer MEDICARE, OTHER | LOC: M RAD 06:30 | PROVIDERS: ATTEND Student in an Organized Health Care Education/Training Program | DX: Z87.891 Personal history of nicotine dependence (principal) ==

== ENCOUNTER → 2022-11-29 | Outpatient (CLI) | payer MEDICARE, MEDICAID ==
[2022-11-29 08:44] LABS: HEMATOCRIT 42.8 % (42.0-52.0); HEMOGLOBIN 14.1 g/dl (13.5-17.5); MEAN CORPUSCULAR HGB CONC 32.9 g/dl (32.0-36.5); MEAN CORPUSCULAR VOLUME 94.1 fl (80.0-96.0); PLATELET COUNT, AUTOMATED 184 10^3/uL (150-450); RED BLOOD COUNT 4.55 10^6/uL (4.30-6.10); WHITE BLOOD COUNT 4.7 10^3/uL (4.0-10.0)
[2022-11-29 08:56] LABS: INR 1.07; PROTHROMBIN TIME 13.6 SECONDS (12.5-14.5)
[2022-11-29 09:04] LABS: ERYTHROCYTE SEDIMENTATION RATE 12 mm/hr (0-20)
[2022-11-29 09:15] LABS: ALBUMIN 3.4 G/DL (3.2-5.2); ALKALINE PHOSPHATASE 63 U/L (46-116); ALT/SGPT 15 U/L (7.0-40); AST/SGOT 11 U/L (<34); BILIRUBIN,TOTAL 0.6 MG/DL (0.3-1.2); BLOOD UREA NITROGEN 10 MG/DL (9-23); CALCIUM LEVEL 8.5 MG/DL (8.3-10.6); CARBON DIOXIDE LEVEL 31 MMOL/L (20-31); CHLORIDE LEVEL 107 MMOL/L (98-107); CREATININE FOR GFR 0.94 MG/DL (0.70-1.30); GLOMERULAR FILTRATION RATE > 60.0 (>49); GLUCOSE, FASTING 91 MG/DL (74-106); POTASSIUM SERUM 4.9 MMOL/L (3.5-5.1); SODIUM LEVEL 141 MMOL/L (136-145); TOTAL PROTEIN 6.3 G/DL (5.7-8.2)
== END ==
LOC: M RAD 07:52
PROVIDERS: ATTEND Orthopaedic Surgery
DX: Z01.818 Encounter for other preprocedural examination (principal); M16.12 Unilateral primary osteoarthritis, left hip; I44.0 Atrioventricular block, first degree; I49.8 Other specified cardiac arrhythmias

== ENCOUNTER → 2023-05-13 | Outpatient (REF) | payer OTHER | LOC: M SFHCPLAZ 13:36 | PROVIDERS: ATTEND Family Medicine | DX: Z53.9 Procedure and treatment not carried out, unspecified reason (principal) ==

== ENCOUNTER → 2023-05-16 | Outpatient (CLI) | payer MEDICARE, OTHER ==
[2023-05-16 09:45] LABS: HEMOGLOBIN 14.9 g/dl (13.5-17.5); MEAN CORPUSCULAR HEMOGLOBIN 30.2 pg (27.0-33.0); MEAN CORPUSCULAR HGB CONC 33.9 g/dl (32.0-36.5); MEAN CORPUSCULAR VOLUME 89.2 fl (80.0-96.0); PLATELET COUNT, AUTOMATED 178 10^3/uL (150-450); RED BLOOD COUNT 4.93 10^6/uL (4.30-6.10); WHITE BLOOD COUNT 6.3 10^3/uL (4.0-10.0)
[2023-05-16 09:57] LABS: HEMOGLOBIN A1c 5.6 % (4.0-6.0)
[2023-05-16 10:20] LABS: ALBUMIN 3.4 G/DL (3.2-5.2); ALKALINE PHOSPHATASE 83 U/L (46-116); ALT/SGPT 20 U/L (7.0-40); AST/SGOT 16 U/L (<34); BILIRUBIN,TOTAL 0.6 MG/DL (0.3-1.2); BLOOD UREA NITROGEN 12 MG/DL (9-23); CARBON DIOXIDE LEVEL 30 MMOL/L (20-31); CHLORIDE LEVEL 105 MMOL/L (98-107); CHOLESTEROL LEVEL 178 MG/DL (<200); CHOLESTEROL RISK RATIO 4.01 (<5); CREATININE FOR GFR 0.95 MG/DL (0.70-1.30); GLOMERULAR FILTRATION RATE > 60.0 (>49); GLUCOSE, FASTING 92 MG/DL (74-106); HDL CHOLESTEROL 44.3 MG/DL (>40); LDL CHOLESTEROL 110.5 MG/DL (<100); NON-HDL-C 133.7 MG/DL; POTASSIUM SERUM 4.6 MMOL/L (3.5-5.1); PSA SCREENING 2.46 NG/ML (< 4.00); SODIUM LEVEL 139 MMOL/L (136-145); TOTAL PROTEIN 6.3 G/DL (5.7-8.2); TRIGLYCERIDES LEVEL 116 MG/DL (<150)
== END ==
LOC: M LAB 08:04
PROVIDERS: ATTEND Student in an Organized Health Care Education/Training Program
DX: E78.5 Hyperlipidemia, unspecified (principal); F10.11 Alcohol abuse, in remission; Z12.5 Encounter for screening for malignant neoplasm of prostate; Z87.891 Personal history of nicotine dependence; R73.03 Prediabetes
CPT/HCPCS: 36415; 80053; 80061; 83036; 85027; G0103

== ENCOUNTER → 2023-05-30 | Outpatient (CLI) | payer MEDICARE, OTHER | LOC: M RAD 06:39 | PROVIDERS: ATTEND Student in an Organized Health Care Education/Training Program | DX: Z13.6 Encounter for screening for cardiovascular disorders (principal) ==

== ENCOUNTER → 2023-06-20 | Outpatient (CLI) | payer MEDICARE | LOC: M RAD 06:53 | PROVIDERS: ATTEND Student in an Organized Health Care Education/Training Program | DX: Z12.2 Encounter for screening for malignant neoplasm of respiratory organs (principal); Z87.891 Personal history of nicotine dependence ==

== ENCOUNTER → 2024-05-14 | Outpatient (CLI) | payer MEDICARE, OTHER ==
[~2024-05-14] MED LIST changes: +FLUO-365; -FLUO20CA22
[2024-05-14 07:56] LABS: BASO % 0.4 % (0.0-1.0); EOS # 0.2 10^3/uL (0.0-0.5); EOS % 3.2 % (0.0-3.0); HEMATOCRIT 43.7 % (42.0-52.0); HEMOGLOBIN 14.6 g/dl (13.5-17.5); LYMPH # 2.1 10^3/uL (1.5-5.0); LYMPH % 41.1 % (24.0-44.0); MEAN CORPUSCULAR HEMOGLOBIN 30.3 pg (27.0-33.0); MEAN CORPUSCULAR HGB CONC 33.4 g/dl (32.0-36.5); MEAN CORPUSCULAR VOLUME 90.7 fl (80.0-96.0); MONO # 0.6 10^3/uL (0.0-0.8); MONO % 11.7 % (2.0-8.0); NEUTROPHILS # 2.2 10^3/uL (1.5-8.5); NEUTROPHILS % 43.4 % (36.0-66.0); PLATELET COUNT, AUTOMATED 165 10^3/uL (150-450); RED BLOOD COUNT 4.82 10^6/uL (4.30-6.10); WHITE BLOOD COUNT 5.1 10^3/uL (4.0-10.0)
[2024-05-14 08:15] LABS: ALBUMIN 3.4 G/DL (3.2-5.2); ALKALINE PHOSPHATASE 70 U/L (40-129); ALT/SGPT 27 U/L (7.0-40); AST/SGOT 21 U/L (<34); BILIRUBIN,TOTAL 0.4 MG/DL (0.3-1.2); BLOOD UREA NITROGEN 11 MG/DL (9-23); CARBON DIOXIDE LEVEL 29 MMOL/L (20-31); CHLORIDE LEVEL 108 MMOL/L (98-107); CHOLESTEROL LEVEL 168 MG/DL (<200); CHOLESTEROL RISK RATIO 4.27 (<5); CREATININE FOR GFR 0.93 MG/DL (0.70-1.30); GLOMERULAR FILTRATION RATE > 60.0 (>49); GLUCOSE, FASTING 97 MG/DL (74-106); HDL CHOLESTEROL 39.3 MG/DL (>40); LDL CHOLESTEROL 104.5 MG/DL (<100); NON-HDL-C 128.7 MG/DL; POTASSIUM SERUM 4.5 MMOL/L (3.5-5.1); SODIUM LEVEL 143 MMOL/L (136-145); TOTAL PROTEIN 6.4 G/DL (5.7-8.2); TRIGLYCERIDES LEVEL 121 MG/DL (<150)
[2024-05-14 08:16] LABS: FREE T4 0.92 NG/DL (0.89-1.76); THYROID STIMULATING HORMONE 3.425 uIU/ML (0.55-4.78)
[2024-05-14 09:40] LABS: HEMOGLOBIN A1c 5.8 % (4.0-6.0)
== END ==
LOC: M LAB 06:42
DX: Z00.00 Encounter for general adult medical examination without abnormal findings (principal); Z79.899 Other long term (current) drug therapy

== ENCOUNTER → 2024-06-15 | Outpatient (CLI) | payer MEDICARE | LOC: M RAD 06:24 | DX: K76.0 Fatty (change of) liver, not elsewhere classified (principal) ==

== ENCOUNTER → 2024-08-05 | Outpatient (CLI) | payer MEDICARE | LOC: M RAD 07:51 | DX: Z12.2 Encounter for screening for malignant neoplasm of respiratory organs (principal); Z87.891 Personal history of nicotine dependence ==

== ENCOUNTER → 2025-01-21 | Outpatient (REF) | payer MEDICARE | LOC: M SFHCPLAZ 11:47 | PROVIDERS: ATTEND Student in an Organized Health Care Education/Training Program | DX: Z53.9 Procedure and treatment not carried out, unspecified reason (principal) ==

== ENCOUNTER → 2025-01-22 | Outpatient (CLI) | payer MEDICARE ==
[2025-01-22 12:11] LABS: ALT/SGPT 21.0 U/L (7.0-40); AST/SGOT 21.0 U/L (<34); CALCIUM LEVEL 8.8 MG/DL (8.3-10.6); CARBON DIOXIDE LEVEL 31.0 MMOL/L (20-31); CHLORIDE LEVEL 103.0 MMOL/L (98-107); CREATININE FOR GFR 0.99 MG/DL (0.70-1.30); GLOMERULAR FILTRATION RATE 83.5 (>49); MAGNESIUM LEVEL 2.2 MG/DL (1.8-2.4); PHOSPHORUS LEVEL 3.3 MG/DL (2.4-5.1); POTASSIUM SERUM 4.2 MMOL/L (3.5-5.1); SODIUM LEVEL 141.0 MMOL/L (136-145)
== END ==
LOC: M LAB 11:14
DX: I10 Essential (primary) hypertension (principal)

== ENCOUNTER → 2025-02-28 | Outpatient (CLI) | payer MEDICARE | LOC: M CARPUL 15:58 | DX: R00.2 Palpitations (principal) ==

== ENCOUNTER → 2025-03-18 | Outpatient (CLI) | payer MEDICAID, MEDICARE | LOC: M RAD 08:14 | DX: I10 Essential (primary) hypertension (principal) ==